=== PATIENT | female | born 1940 | race Caucasian/White ===

== ENCOUNTER → 2016-10-24 | Outpatient (CLI) | payer BC ==
--- NOTE | 2016-10-24 15:32 | MAMMOGRAPHY REPORT ---
BILATERAL DIGITAL SCREENING MAMMOGRAM WITH CAD: 10/24/2016 CLINICAL HISTORY: Routine screening. Patient has no complaints. TECHNIQUE: Current study was also evaluated with a Computer Aided Detection (CAD) system. Bilateral CC and MLO views were obtained. COMPARISON: Comparison is made to exams dated: 10/02/2014 mammogram, 09/30/2013 mammogram, 09/24/2012 ya mogram, 09/22/2011 mammogram, 09/17/2010 mammogram - [facility], and 11/12/2006. BREAST COMPOSITION: There are scattered areas of fibroglandular density in both breasts. FINDINGS: No suspicious masses, calcifications, or areas of architectural distortion are noted in ei ther breast. There has been no significant interval change compared to prior exams. IMPRESSION: ACR BI-RADS CATEGORY 1: NEGATIVE There is no mammographic evidence of malignancy. A 1 year screening mammogram is recommended. The pa tient will receive written notification of the results. Approximately 10% of breast cancers are not detected with mammography. A negative mammographic report should not delay biopsy if a clinically suggestive mass is present. Allie Batista M.D. ah/:10/24/2016 10:23:40 General Repairer: Shona BACA(R)(M), [facility] letter sent: Normal 1/2 BI-RADS Code: ACR BI-RADS Category 1: Negative
== END | disposition home or self-care (01) ==
LOC: C.MAMM 09:37
PROVIDERS: ATTEND Family Medicine
DX: Z12.31 Encounter for screening mammogram for malignant neoplasm of breast (principal)

== ENCOUNTER 2019-07-28 07:23 | Inpatient (IN) ==
--- NOTE | 2019-07-15 16:56 | History & Physical Report ---
Date of Service July 15, 2019 Assessment & Plan (1) Osteoarthritis of left hip: Plan: Patient is scheduled to undergo this procedure with Dr. Michael Schneider at the [facility] as an inpatient on July 28, 2019. Risks and complications of the procedure such as: Infection, bleeding, pain, scarring, nerve blood vessel damage, weakness, wound problems, stiffness, incomplete relief of symptoms, hardware failure, hardware loosening, wear, fracture, tendon or ligament injury, dislocation, leg length inequality, blood clots, embolism, heart attack, stroke and were explained the patient had a visit today by Dr. Schneider. Informed consent to perform the procedure was obtained. Patient also understood the risks of surgery during the COVID-19 pandemic. Currently she is asymptomatic. We will test the patient for COVID-19 prior to her surgical procedure. We have already obtained preoperative medical clearance from the patient's primary care provider Dr. Padilla. Pain is EKG at our clinic this afternoon. Patient will proceed to the laboratory upstairs to obtain a CBC with differential, complete metabolic panel, PT/INR, urinalysis, urine culture, hemoglobin A1c and a nasal culture for MRSA. Patient was provided with an order for a walker during today's visit. I also recommended that she purchase a hip kit prior to the procedure. Patient will be scheduled for her 2-week postoperative follow-up with myself on August 12, 2019 at 2:00 in the afternoon. I advised the patient that we will provide her with pain relieving agents upon discharge from the hospital. She states that she will most likely plan on discharge to home with home health services discussing discharge planning. I advised the patient that she will need to take antibiotics prior to dental procedures after doing replacement surgery. I also provided her with paperwork in regards to obtaining a handicap placard for her vehicle. We discussed total hip precautions and went over the hip arthroscopy packet. All questions were answered completely and effectively. Standing of all information provided during today's visit, thanks for the care she is received, and states she has questions or concerns that should arise prior to her surgery date, she will contact clinic. History of Present Illness Chief Complaint: Left hip pain PRE-OP Diagnosis: Left hip osteoarthritis Planned Procedure: Left total hip arthroplasty History of Present Illness (including history relevant to procedure): This 78-year-old female presents the clinic today for preoperative history and physical examination. She complains of persistent left anterior hip pain that is been ongoing since mid November 2018. Patient states she went to transition from a seated to a standing position while caring for her grandchildren felt a popping sensation in the hip. Since that time she has had progressive worsening of the pain. Over the winter months she was in [place] saw an orthopedic surgeon who thought that the pain may be originating from her back. She received a few steroid injections that did not alleviate her pain. Patient was referred to physical therapy and her therapist felt that it may be stemming from her hip. After his recommendation she received x-rays and MRI that confirmed the hip arthritis. Patient feels it is affecting her activities of daily living and states she would like to resume golfing, hopefully this winter when she returns to [place]. Past Medical History: Problems: Osteoarthritis of left hip Preop examination Left hip pain Hypertension Hyperlipidemia GERD Anxiety Procedure History Procedure Procedure Date Comments Hernia 2017 - hernia repair EYE SURGERY PROCEDURE 2007 - cataracts REMOVAL OF GALLBLADDER 2006 TOTAL HYSTERECTOMY 1986 DELIVERY 1976 - 1970 and 1976 ASPIRATE/INJ GANGLION CYST 1965 Allergies and Sensitivities: Allergy Not found in Search(sinus drainage) Dust(sinus drain) No Known Medication Allergies Social History: Patient denies tobacco or illicit drug use. She consumes approximately 10 alcoholic beverages per week. Family History: Completely unremarkable Current Home Meds: (Last Updated 07/14 14:23) aspirin 81 mg PO Daily(Vitamin D3)(Vitamin B-12) PO Dailyophthalmic (Restasis) 1 drop both eyes Daily(Dulcolax Stool Softener)(Unisom) pm pain(gemfibrozil 600 mg oral tablet)(hydroCHLOROthiazide 25 mg oral tablet)(Advil)with minerals (Centrum Silver oral tablet) 1 tab PO Daily(pantoprazole 20 mg oral delayed release tablet) potassium gluconate Review of Systems All systems reviewed & are unremarkable except as noted in HPI & below Physical Exam Physical Exam: Physical Exam: (relevant to the procedure, including heart and lung evaluation) General: Alert and oriented x3 with proper grooming and hygiene Eyes: are equal react light and accommodating. Extraocular movements are intact Throat: Posterior oropharynx is clear with absence of edema, erythema or exudate Cardiac: Regular rate and rhythm with no murmurs or gallops appreciated Lungs: Auscultation of lung earl reveals clear breath sounds throughout with no wheezing, rales or rhonchi Abdomen: Mildly obese, nondistended, nontender with normal active bowel sounds Extremities: Left hip exam shows flexion up to 110 degrees. External rotation is limited to 30 degrees and internal rotation is 5 degrees. She has positive impingement-scour test. Positive Stinchfield test. She has palpable dorsalis pedis and posterior tibial pulses. Sensory intact to light touch, L3-S1 dermatomes. Neuro: Cranial nerves II through XII are intact with no motor or sensory deficit Skin: Normal in appearance with no open skin areas or discharge Results & Data Diagnostic Findings Studies of Lab Results (relevant to the procedure): X-rays that were done down in [place] as well as an MRI are reviewed. These show lxjw-[id number] arthritis with edema seen within the femoral head greater than the acetabulum consistent with advanced osteoarthritis.
--- NOTE | 2019-07-22 13:12 | Anesthesiology Consultation ---
Date of Service July 22, 2019 Assessment & Plan (1) Encounter for pre-operative examination: Chart Review Chart Review: Pending: Refer to Additional Notes / Consult section (final PCP clearance pending review of preop testing (may need cardiac workup due to abnormal EKG) and 07/24 Covid testing results) and Patient NOT seen in Pre Admission Testing *Per nursing assessment 07/21/2019, patient resides in [facility] but traveled to [place] (near [place]) from November 2018 till May 2019. Patient returned to [facility] on 06/22/2019. Pt denies any known contact with PUI/Covid positive patients. No current Covid related symptoms. Patient scheduled for COVID testing 07/25/2019 per surgeon orders. Seen by PCP 07/13/2019 = unremarkable preop evaluation today with unremarkable physical exam and normal vitals. Would recommend a screening EKG as well as a BMP to check renal function. At this time, pending patient's labs and screening EKG, she is a low risk for adverse cardiorespiratory outcomes with upcoming surgical procedure. (PCP was sent preop labs and EKG for review since EKG has abnormalities- will await PCP response). History Surgery Operation Date: 07/28/19 09:35 Proposed Procedures p Left Total Hip Arthroplasty - Michael Vo MD Height/Weight Height: 5 ft 4 in Weight: 67.132 kg Allergies Allergy/AdvReac Type Severity Reaction Status Date / Time No Known Drug Allergies Allergy Verified 07/21/19 09:48 nickel AdvReac Intermediate SKIN Verified 07/21/19 09:48 IRRITATION Medications Home Medications Medication Instructions Recorded Confirmed Last Taken acetaminophen [Tylenol Arthritis 1,300 mg PO QAM PRN 07/21/19 07/21/19 Unknown Pain] aspirin [Aspirin Low Dose] 81 mg PO DAILY 07/21/19 07/21/19 Unknown cholecalciferol (vitamin D3) 25 mcg PO DAILY 07/21/19 07/21/19 Unknown [Vitamin D3] cyanocobalamin (vitamin B-12) 1,000 mcg PO DAILY 07/21/19 07/21/19 Unknown [Vitamin B-12] cyclosporine [Restasis] 1 drp OPHTHALMIC (EYE) Q12H 07/21/19 07/21/19 Unknown diphenhydramine-acetaminophen 1 tab PO HS PRN 07/21/19 07/21/19 Unknown [Tylenol PM Extra Strength] docusate sodium [Stool Softener] 200 mg PO QAM 07/21/19 07/21/19 Unknown gemfibrozil 600 mg PO QAM 07/21/19 07/21/19 Unknown losartan-hydrochlorothiazide 1 tab PO QAM 07/21/19 07/21/19 Unknown ljphdxoy-mxk-zkwr-FA-lutein 1 tab PO DAILY 07/21/19 07/21/19 Unknown [Centrum Silver Women] pantoprazole 20 mg PO QAM 07/21/19 07/21/19 Unknown potassium gluconate 595 mg PO DAILY 07/21/19 07/21/19 Unknown travoprost [Travatan Z] 1 drp OPHTHALMIC (EYE) PM 07/21/19 07/21/19 Unknown Past Medical History Medical History Anxiety Chronic back pain GERD (gastroesophageal reflux disease) Glaucoma TREATED FOR HIGH PRESSURE Hip pain GROIN INTO THE KNEE PAIN BELIVED TO BE RELATED TO THE HIP AREA History of tachycardia R/T ANXIETY Hyperlipidemia Hypertension Osteoarthritis Past Family History Family History Mother FHx: glaucoma Other No family history of adverse response to anesthesia Past Surgical History Surgical History History of appendectomy History of cataract surgery BILATERAL History of section History of cholecystectomy History of colonoscopy Hx of umbilical hernia repair S/P epidural steroid injection S/P OZIEL-BSO Social History Smoking Status: Never smoker Do You Dip or Chew Tobacco: No Hx Alcohol Use: Yes Alcohol type: wine alcohol intake frequency: 0-2 drinks per day Hx Substance Use: No substance use type: does not use Testing Laboratory Results Laboratory Tests 07/15/19 07/15/19 07/15/19 15:37 15:37 15:37 WBC 6.00 Hgb 13.0 Hct 37.9 Plt Count 214 PT 10.9 INR 1.0 Sodium 142 Potassium 3.2 L Chloride 103 Carbon Dioxide 27 BUN 23 H Creatinine 1.28 H Glucose 123 H Hemoglobin A1c 07/15/19 15:37 WBC Hgb Hct Plt Count PT INR Sodium Potassium Chloride Carbon Dioxide BUN Creatinine Glucose Hemoglobin A1c 6.1 H Urine culture 07/15/2019 = gamma strep not enterococcus. 50,000 CFG/ml. No sensitivies to follow Electrocardiogram Date: 07/15/19 Findings: + NSR @ (79) T wave abnormality, consider lateral ischemia. Prolonged QT Echocardiogram Date: 10/26/13 EF: 50 to 55% LV Function: normal RWMA: + none Valvular Disease: + no significant valvular disease Grade 1 diastolic dysfunction.
[~2019-07-28 07:23] MED LIST: ACETAMINOPHEN 500 MG TAB PO SCH; BUPIVACAINE 0.5 % 5 MG/1 ML PF 10ML VIAL ONE; CEFAZOLIN 2000MG 2,000 MG/15 ML SYR IV SCH; CeleBREX 200 MG CAP PO SCH; FAMOTIDINE 20 MG TAB PO SCH; LR 500ML BOLUS, THEN 15ML/HR IV SCH; LR 60ML/HR IV SCH; METOCLOPRAMIDE HCL 10 MG TABLET PO SCH; ROPIVACAINE 0.5% HCL/PF 150 MG, BUPIVACAINE 0.5% MPF 30 ML, EPINEPHrine 0.15 MG, Ketoro... INFIL SCH; SCOPOLAMINE 1.5 MG TDSY TD SCH; TRAMADOL HCL 50 MG TABLET PO SCH; TRANEXAMIC ACID 1,000 MG **IV Intra-op IV SCH; TRANEXAMIC ACID 1,000 MG **IV Pre-op IV SCH; dexAMETHasone 4 MG TAB PO SCH
[2019-07-28] MEDS ORDERED: LIDOCAINE HCL 2% 2 ML VIAL/AMP(20MG/ML) INFIL ONE (08:28)
[2019-07-28] MEDS ORDERED: PROPOFOL IV EMULSION 10 MG/ML 20 ML VIAL IV ONE (08:28)
[2019-07-28] MEDS ORDERED: MIDAZOLAM HCL 1 MG/ML 2ML VIAL ONE (08:29)
[2019-07-28] MEDS ORDERED: fentaNYL citrate 100 MCG/2 ML VIAL ONE (08:29)
--- NOTE | 2019-07-28 09:16 | History & Physical Bridge Note ---
Date of Service July 28, 2019 History & Physical Bridge Note I have examined the patient, reviewed the History & Physical and in the interval since the performance of the History & Physical I have noted the following changes of clinical significance: no changes noted
[2019-07-28] MEDS ORDERED: ORTHO JOINT ANESTHETIC ONE (09:33)
--- NOTE | 2019-07-28 11:31 | Operative Report ---
Post Operative Report Pre & Post Diagnosis Operation Date: 07/28/19 09:35 Pre-Op Diagnosis: Left Hip Osteoarthritis Post-Op Diagnosis: Left Hip Osteoarthritis I identified the patient and participated in the time-out.: Yes Procedure Operation Date: 07/28/19 09:35 Actual Procedures p Left Total Hip Arthroplasty, Uncemented(Left) - Michael Vo MD Surgeon Michael oV MD Geological Drafter ANAID Ward PA-C Estimated Blood Loss 100 Findings Consistent with Post-Op Diagnosis Specimens Femoral head Anesthesia Type Spinal MAC Complications none Disposition Accompanied Patient To Recovery: No Disposition: Recovery Room Indications 79-year-old female with left hip pain refractory to conservative management. X- rays demonstrate ndik-sz-syky arthritis. I had a long discussion with her about the risks and benefits of surgery alternatives to surgery and expected outcomes. After reviewing all these she elected to proceed with surgery. All questions were answered. Informed consent was signed. Description of Procedure Patient was identified in the preoperative holding area the surgical site was marked. A spinal anesthetic was performed, then the patient was brought back to the main operating room, placed in the operating table and moved in the lateral decubitus position. Axillary roll was placed. All bony prominences were padded. Perioperative antibiotics and tranexamic acid were administered. The operative extremity was prepped and draped in the normal sterile fashion. Prior to incision a multidisciplinary timeout was called. All in the room in agreement. We began by making an incision for a posterior approach to the hip. We dissected down through subcutaneous tissues to the level of the fascia. The fascia was incised in line with the incision. Charnley bow was placed. The trochanteric bursa was excised. The piriformis and short external rotators were dissected off the posterior aspect of the hip. A box cut was made in the capsule. The femoral head was dislocated. The femoral neck cut was made at our preoperative template. The acetabulum was then exposed. Contents of the cotyloid fossa were removed with electrocautery. The labrum was sharply excised. We then began reaming at a size 8 mm less than our preoperative template. We reamed up by 1 [address] the way up to a size 52 mm cup. This gave us good bleeding cancellus bone circumferentially. The acetabulum was then irrigated out. The real pinnacle Gription cup was then impacted down into position with 45 degrees of lateral opening and 25 degrees of anteversion. A single cancellous bone screw was placed up into the ilium. Excellent fixation was obtained. An Ultrex polyethylene liner for a 32 mm femoral head was then impacted into the shell. The locking mechanism was checked to ensure that it had engaged which it had. Next we turned our attention to the femur. The lateral neck was removed with a box osteotome. Intramedullary guide was used followed by the lateralizing reamer. We then reamed up to a size 5 [place] stem. We broached him all the way up to a size 5. We began trialing with a standard offset neck and a +5 head. Hip was reduced. Leg lengths were checked and were symmetric. The hip was stable was stable in extension and external rotation, and in the sleeper position. At 90 degrees of hip flexion the hip could be internally rotated 70 degrees before levering out of the cup. I was very happy with the stability exam. Therefore the hip was dislocated and the femoral trial was removed. The femoral canal was irrigated and dried. The real size 5 standard offset [place] femoral stem was opened up. This was impacted down into position. It sat at the same level as the femoral trial. Therefore the 32 mm ceramic femoral head with a +5 mm offset was opened up and gently impacted down onto the trunnion. The hip was atraumatically reduced. The wound was irrigated out with sterile Betadine solution. The periarticular injection cocktail was then placed. The short external rotators piriformis and posterior capsule repaired through drill holes in the greater trochanter using #2 Vicryl. The fascia was run with a looped #1 PDS. The subcutaneous layer was closed with #1 PDS. The dermal layer was closed with 2-0 Vicryl. Zip line was used for the skin followed by a Silverlon dressing. A compressive dressing was then placed. The patient was then rolled supine. Leg lengths were rechecked and were symmetric. An abduction pillow was placed. Sedation was lifted and the patient was transferred to recovery room in stable condition. Summary of implants: Depuy Keymar Gription Acetabular Shell Sector Cup, 52 mm outer diameter Keymar Cancellous bone screw, 6.5 x 35 mm Keymar Altrx Polyethylene Acetabular Liner, Neutral, with a 32 mm inner diameter DePuy [place] Femoral stem with Porocoat, 12/14 taper, size 5 standard 32 mm ceramic femoral head with +5 offset Postoperative course: Patient will be admitted to the hospital from the recovery room. Patient will be weightbearing as tolerated with posterior hip precautions. Aspirin for DVT prophylaxis I attest to the content of the Intraoperative Record and any orders documented therein. Any exceptions are noted below.
[2019-07-28] MEDS ORDERED: NALOXONE HCL 0.4 MG/1 ML VIAL/CARP IV PRN (11:32)
[2019-07-28] MEDS ORDERED: bisacodyL 10 MG SUPP PR PRN (11:32)
[2019-07-28] MEDS ORDERED: ALUMINUM/MAGNESIUM SUSP 30 ML UDC PO PRN (11:32)
[2019-07-28] MEDS ORDERED: DiphenhydrAMINE HCL 50 MG/ML VIAL IV PRN (11:32)
[2019-07-28] MEDS ORDERED: HYDROmorphone INJ 0.5 MG/0.5 ML SYR IV PRN (11:32)
[2019-07-28] MEDS ORDERED: ONDANSETRON INJ 2 MG/ML 2 ML VIAL IV PRN (11:32)
[2019-07-28] MEDS ORDERED: METOCLOPRAMIDE HCL INJ 5 MG/ML 2 ML VIAL IV PRN (11:32)
[2019-07-28] MEDS ORDERED: MAGNESIUM HYDROXIDE SUSP 30 ML UDC PO PRN (11:32)
--- NOTE | 2019-07-28 11:32 | Operative Report ---
Post Operative Report Pre & Post Diagnosis Operation Date: 07/28/19 09:35 Pre-Op Diagnosis: Left Hip Osteoarthritis Post-Op Diagnosis: Left Hip Osteoarthritis I identified the patient and participated in the time-out.: Yes Procedure Operation Date: 07/28/19 09:35 Actual Procedures p Left Total Hip Arthroplasty, Uncemented(Left) - Michael Vo MD Surgeon Michael Vo MD Termite Inspector Garrick Ward PA-C Estimated Blood Loss 100 Findings Consistent with Post-Op Diagnosis Specimens femoral head Complications none Disposition Accompanied Patient To Recovery: Yes Disposition: Recovery Room Description of Procedure I was present during the entire procedure assisting with retraction, wound closure and dressing application. Please see Dr. Vo procedure note for specifics of the case. I attest to the content of the Intraoperative Record and any orders documented therein. Any exceptions are noted below.
[2019-07-28] MEDS ORDERED: NON-FORMULARY MEDICATION (Diphenhydramine-Acetaminophen [Tylenol Pm Extra Strength] 1 TAB) PO PRN (11:36)
--- NOTE | 2019-07-28 11:58 | XRay Report ---
AP PELVIS, CROSSTABLE LATERAL LEFT HIP History: Left total hip arthroplasty. Degenerative arthritis. Postop. FINDINGS: The patient is status post a left total hip arthroplasty. The hardware is intact. No fractu re or dislocation. IMPRESSION: Left total hip arthroplasty. No evidence for hardware complication. ACT 112: Negative or not required by law. Electronically signed by: Milan Sanchez M.D. 07/28/2019 11:57 AM
--- NOTE | 2019-07-28 13:28 | Anesthesiology Progress Note ---
Date of Service July 28, 2019 Anesthesia Post Procedure Vital Signs Vital Signs: Temp Pulse Pulse Resp BP Pulse Ox 07/28/19 13:19 36.5 C 63 16 120/74 97 07/28/19 12:55 65 16 118/76 95 07/28/19 12:45 66 12 120/74 96 07/28/19 12:35 67 21 119/80 98 07/28/19 12:25 60 12 121/70 97 07/28/19 12:15 63 14 117/85 95 07/28/19 12:05 67 15 97/65 L 99 07/28/19 11:55 36.4 C L 62 15 107/69 94 07/28/19 11:45 59 L 13 101/60 93 07/28/19 11:35 63 17 112/65 93 07/28/19 11:27 36 C L 64 20 92/52 L 100 07/28/19 08:18 36.8 C 66 20 138/79 96 Transfer of Care Handoff Completed per policy Notes Mental Status: alert / awake / arousable and participated in evaluation Patient Amnestic to Procedure: Yes Nausea / Vomiting: adequately controlled Pain: adequately controlled Airway Patency, RR, SpO2: stable & adequate BP & HR: stable & adequate Hydration State: stable & adequate Anesthetic Complications: no major complications apparent
[2019-07-28] MEDS ORDERED: ACETAMINOPHEN 500 MG TAB PO PRN (13:32)
[2019-07-28] MEDS: SODIUM CHLORIDE 0.9% 1000ML 1,000 ML IV SCH ×2 (14:56→23:55)
[2019-07-28] MEDS: ACETAMINOPHEN 500 MG TAB PO SCH ×2 (14:56→21:09)
[2019-07-28] MEDS: KETOROLAC TROMETHAMINE 15 MG/ML VIAL IV SCH ×2 (14:57→20:03)
[2019-07-28] MEDS ORDERED: TRANEXAMIC ACID / 0.7% NACL 1,000 MG/100 ML BAG IV SCH (17:34)
[2019-07-28] MEDS: CHECK SCOPOLAMINE PATCH PLACEMENT SCH ×2 (17:52→23:56)
[2019-07-28] MEDS: RESTASIS: ORDER AWAITING ACTION SCH ×2 (17:53→23:57)
[2019-07-28] MEDS: CEFAZOLIN 2000MG 2,000 MG/15 ML SYR IV SCH (18:31)
[2019-07-28] MEDS: ASPIRIN 81 MG ECTAB PO SCH (20:03)
[2019-07-28] MEDS: TRAMADOL HCL 50 MG TABLET PO PRN (20:04)
[2019-07-28] MEDS: TRAVOPROST Z 0.004% OPH SOLN 2.5 ML BTL OP SCH ×2 (20:05→20:08)
[2019-07-28] MEDS: PATIENT'S ALLERGY INFO NEEDS ENTERED SCH ×3 (20:46→21:04)
[2019-07-28] MEDS ORDERED: DOCUSATE SODIUM 100 MG CAP PO SCH (21:00)
[2019-07-28] MEDS ORDERED: ASPIRIN 81 MG ECTAB PO SCH (21:00)
[2019-07-28] MEDS ORDERED: SENNA 8.6 MG TAB PO SCH (21:00)
[2019-07-29] MEDS: KETOROLAC TROMETHAMINE 15 MG/ML VIAL IV SCH ×2 (02:10→07:35)
[2019-07-29] MEDS: CEFAZOLIN 2000MG 2,000 MG/15 ML SYR IV SCH (02:10)
[2019-07-29] MEDS: ACETAMINOPHEN 500 MG TAB PO SCH (04:47)
[2019-07-29 05:44] LABS: Eosinophils # (auto) 0.01 K/uL (0-0.5); Eosinophils % (auto) 0.1 %; Hematocrit (blood only) 28.7 % (37-47); Hemoglobin 9.4 g/dL (12.0-16.0); Immature Granulocytes # (auto) 0.01 K/uL (0.00-0.02); Immature Granulocytes % (auto) 0.1 %; Lymphocytes # (auto) 1.09 K/uL (1.2-3.4); Lymphocytes % (auto) 11.2 %; Mean Corpuscular Hemoglobin 28.8 pg (25-34); Mean Corpuscular Hgb Conc 32.8 g/dL (32-36); Mean Platelet Volume 10.7 fL (7.4-10.4); Monocytes % (auto) 7.2 %; Neutrophils # (auto) 7.93 K/uL (1.4-6.5); Neutrophils % (auto) 81.4 %; Platelet Count 204 K/uL (130-400); RDW Coefficient of Variation 12.4 % (11.5-14.5); RDW Standard Deviation 40.4 fL (36.4-46.3); Red Blood Count 3.26 M/uL (4.2-5.4); White Blood Count 9.74 K/uL (4.8-10.8)
[2019-07-29 06:03] LABS: BUN Creatinine Ratio 19.4 (10-20); Calcium 8.6 mg/dl (8.5-10.1); Creatinine Clr Calc Pharmacy 31.7 ml/min; Est GFR (Non-African American) 36.2; Potassium 3.9 mmol/L (3.5-5.1)
[2019-07-29] MEDS: RESTASIS: ORDER AWAITING ACTION SCH (07:36)
[2019-07-29] MEDS: CHECK SCOPOLAMINE PATCH PLACEMENT SCH (07:36)
[2019-07-29] MEDS ORDERED: dexAMETHasone 4 MG TAB PO SCH (08:00)
[2019-07-29] MEDS: ASPIRIN 81 MG ECTAB PO SCH (08:45)
[2019-07-29] MEDS ORDERED: PANTOprazole 40 MG TAB PO SCH (09:00)
[2019-07-29] MEDS ORDERED: DOCUSATE SODIUM 100 MG CAP PO SCH (09:00)
[2019-07-29] MEDS ORDERED: CHOLECALCIFEROL 1,000 UNITS 25 MCG TAB PO SCH (09:00)
[2019-07-29] MEDS ORDERED: NON-FORMULARY MEDICATION (Potassium Gluconate 595 MG) PO SCH (09:00)
[2019-07-29] MEDS ORDERED: gemfibroziL 600 MG TAB PO SCH (09:00)
[2019-07-29] MEDS ORDERED: NON-FORMULARY MEDICATION (Multivit-Min-Iron-Fa-Lutein [Centrum Silver Women] 1 TAB) PO SCH (09:00)
[2019-07-29] MEDS ORDERED: MULTIVITAMIN TAB PO SCH (09:00)
[2019-07-29] MEDS ORDERED: LOSARTAN/HCTZ 50/12.5MG TAB PO SCH (09:00)
[2019-07-29] MEDS ORDERED: CYANOCOBALAMIN 500 MCG TABLET (VITAMIN B-12) PO SCH (09:00)
--- NOTE | 2019-07-29 10:19 | Orthopedic Progress Note ---
Date of Service July 29, 2019 Assessment & Plan (1) S/P total hip arthroplasty: Reviewed Total Hip precautions. PT/OT WBAT with walker assistance DVT prophy with TEDs and Aspirin Pain control with PO meds Ice with EZ wrap Discharge home today with home health services Keep dressing in place Follow up at [facility] as scheduled With questions call: Admission and Anticipated Discharge Date Admission Date: July 28, 2019 Subjective This 79 yo F is day 1 s/p left total hip arthroplasty. She was meeting with OT when I saw her this AM. Her outer dressing was removed and Silverlon was clean and intact. She had no complaints and stated that the oral Tramadol had adequately controlled her pain. She is ready to be discharged home. Patient denies CP, SOB, nausea, vomiting, fever, chills, sweats or lethargy. Review of Systems Review of Systems: All systems reviewed & are unremarkable except as noted in Subjective Physical Exam Physical Exam: Left hip: dressing clean, dry and intact. Knee ROM 0-90 without difficulty. Log roll and stinchfield tests negative. Able to actively perform SLRT and dorsi/plantar flex foot. No pain with light passive internal/external hip rotation. Calf soft and supple. NV intact. Periph pulses easily palpable. Cap refill < 2 seconds. Results & Data ([facility]) Vital Signs (Past 12 Hours) Vital Signs Temp Pulse Resp BP Pulse Ox 07/29/19 07:44 36.4 C L 66 16 123/79 93 07/29/19 03:30 36.9 C 62 14 105/64 96 07/28/19 23:22 36.7 C 66 14 120/71 95 Laboratory Results 07/29/19 07/29/19 Range/Units 05:34 05:34 WBC 9.74 (4.8-10.8) K/uL RBC 3.26 L (4.2-5.4) M/uL Hgb 9.4 L (12.0-16.0) g/dL Hct 28.7 L (37-47) % MCV 88.0 (80-100) fL MCH 28.8 (25-34) pg MCHC 32.8 (32-36) g/dL RDW Std Deviation 40.4 (36.4-46.3) fL RDW Coeff of Josh 12.4 (11.5-14.5) % Plt Count 204 (130-400) K/uL MPV 10.7 H (7.4-10.4) fL Immature Gran % (Auto) 0.1 % Neut % (Auto) 81.4 % Lymph % (Auto) 11.2 % Becker % (Auto) 7.2 % Eos % (Auto) 0.1 % Baso % (Auto) 0.0 % Immature Gran # (Auto) 0.01 (0.00-0.02) K/uL Neut # (Auto) 7.93 H (1.4-6.5) K/uL Lymph # (Auto) 1.09 L (1.2-3.4) K/uL Becker # (Auto) 0.70 H (0.11-0.59) K/uL Eos # (Auto) 0.01 (0-0.5) K/uL Baso # (Auto) 0.00 (0-0.2) K/uL Sodium 138 (136-145) mmol/L Potassium 3.9 (3.5-5.1) mmol/L Chloride 108 H (98-107) mmol/L Carbon Dioxide 25 (21-32) mmol/L Anion Gap 5.0 (3-11) BUN 27 H (7-18) mg/dl Creatinine 1.39 H (0.6-1.2) mg/dl Est Cr Clr Drug Dosing 31.7 ml/min Est GFR ( Amer) 42.0 Est GFR (Non-Af Amer) 36.2 BUN/Creatinine Ratio 19.4 (10-20) Glucose 129 H (70-99) mg/dl Calcium 8.6 (8.5-10.1) mg/dl
--- NOTE | 2019-07-29 10:20 | Discharge Summary ---
Date of Service July 29, 2019 Admission HPI Per Admitting Provider PRE-OP Diagnosis: Left hip osteoarthritis Planned Procedure: Left total hip arthroplasty History of Present Illness (including history relevant to procedure): This 78-year-old female presents the clinic today for preoperative history and physical examination. She complains of persistent left anterior hip pain that is been ongoing since mid November 2018. Patient states she went to transition from a seated to a standing position while caring for her grandchildren felt a popping sensation in the hip. Since that time she has had progressive worsening of the pain. Over the winter months she was in [place] saw an orthopedic surgeon who thought that the pain may be originating from her back. She received a few steroid injections that did not alleviate her pain. Patient was referred to physical therapy and her therapist felt that it may be stemming from her hip. After his recommendation she received x-rays and MRI that confirmed the hip arthritis. Patient feels it is affecting her activities of daily living and states she would like to resume golfing, hopefully this winter when she returns to [place]. Past Medical History: Problems: Osteoarthritis of left hip Preop examination Left hip pain Hypertension Hyperlipidemia GERD Anxiety Procedure History Procedure Procedure Date Comments Hernia 2017 - hernia repair EYE SURGERY PROCEDURE 2008 - cataracts REMOVAL OF GALLBLADDER 2007 TOTAL HYSTERECTOMY 1986 DELIVERY 1976 - 1970 and 1976 ASPIRATE/INJ GANGLION CYST 1965 Allergies and Sensitivities: Allergy Not found in Search(sinus drainage) Dust(sinus drain) No Known Medication Allergies Social History: Patient denies tobacco or illicit drug use. She consumes approximately 10 alcoholic beverages per week. Family History: Completely unremarkable Current Home Meds: (Last Updated 07/14 14:23) aspirin 81 mg PO Daily(Vitamin D3)(Vitamin B-12) PO Dailyophthalmic (Restasis) 1 drop both eyes Daily(Dulcolax Stool Softener)(Unisom) pm pain(gemfibrozil 600 mg oral tablet)(hydroCHLOROthiazide 25 mg oral tablet)(Advil)with minerals (Centrum Silver oral tablet) 1 tab PO Daily(pantoprazole 20 mg oral delayed release tablet) potassium gluconate Admission Exam Per Admitting Provider General: Alert and oriented x3 with proper grooming and hygiene Eyes: are equal react light and accommodating. Extraocular movements are intact Throat: Posterior oropharynx is clear with absence of edema, erythema or exudate Cardiac: Regular rate and rhythm with no murmurs or gallops appreciated Lungs: Auscultation of lung earl reveals clear breath sounds throughout with no wheezing, rales or rhonchi Abdomen: Mildly obese, nondistended, nontender with normal active bowel sounds Extremities: Left hip exam shows flexion up to 110 degrees. External rotation is limited to 30 degrees and internal rotation is 5 degrees. She has positive impingement-scour test. Positive Stinchfield test. She has palpable dorsalis pedis and posterior tibial pulses. Sensory intact to light touch, L3-S1 dermatomes. Neuro: Cranial nerves II through XII are intact with no motor or sensory deficit Skin: Normal in appearance with no open skin areas or discharge Principal Diagnosis Left Hip Osteoarthritis Discharge Exam Left hip: dressing clean, dry and intact. Knee ROM 0-90 without difficulty. Log roll and stinchfield tests negative. Able to actively perform SLRT and do rsi/plantar flex foot. No pain with light passive internal/external hip rotation. Calf soft and supple. NV intact. Periph pulses easily palpable. Cap refill < 2 seconds. Discharge Data Allergies Allergy/AdvReac Type Severity Reaction Status Date / Time No Known Drug Allergies Allergy Verified 07/28/19 08:10 nickel AdvReac Intermediate SKIN Verified 07/28/19 08:10 IRRITATION Consultations 07/29/19 08:00 Consult Case Management - Discharge Planning Routine Procedures Performed Operation Date: 07/28/19 09:35 Actual Procedures p Left Total Hip Arthroplasty, Uncemented(Left) - Michael Vo MD Hospital Course (1) S/P total hip arthroplasty: Patient did very well overnight without complication. She has no issues with PT/OT this AM. She will be discharged home with home health services for in-home PT. Reviewed Total Hip precautions. PT/OT WBAT with walker assistance DVT prophy with TEDs and Aspirin Pain control with PO meds Ice with EZ wrap Discharge home today with home health services Keep dressing in place Follow up at [facility] as scheduled With questions call: Total Time Total Time Spent Total Time Spent (In Minutes): 20 mins Total Time Includes: Examination of the Patient, Discharge Planning and Medication Reconciliation Discharge Plan Discharge Items Patient Disposition: Home - Home Health Services Reason For Visit: Left Hip Osteoarthritis Discharge Diagnosis: Left Hip Osteoarthritis Activity: As commented below Lifting: None Bathing: Keep incision dry Bathing Comment: May shower tomorrow Sexual Activity: Wait until after follow-up appointment Exercise/Sports: Wait until after follow-up appointment Driving/Machine Use: No driving until cleared by inventory management specialist Weightbearing: Left weightbearing Weightbearing Comment: as tolerated with walker assistance Non-emergency contact: Primary Care Provider Call non-emergency contact if: you have any medication questions, your pain is not controlled, your temperature is above 101.5, your wound has increased drainage and your wound pain has increased Follow-up/Referrals: PCP,NO [Primary Care Provider] - Diet: Regular Addtl Attending Provider Instructions: Post-operative Instructions Dear Patient and Family/Friends, Before you are discharged from the hospital, it is important to know what to e xpect when you get home after surgery. To that end, we have created this sheet of discharge instructions which covers many commonly asked questions. Make sure you go through this sheet in its entirety with your nurse before you are discharged. Please note that we will go over the specifics of your surgery and recovery when you return for your first post-operative visit. Sincerely, Dr. Vo Medication 1. Tramadol 50 mg: take 1-2 tabs by mouth every 4-6 hours as needed for pain. This will be sent to your pharmacy. 2. Diclofenac Sodium 75 mg: take 1 tab twice daily for 30 days post operatively. This will be sent to your pharmacy with 1 refill. 3. Aspirin 81 mg: take 1 tab twice daily for 30 days post operatively to prevent blood clots. Please purchase this medication. 4. Extra Strength Tylenol 500mg: take 2 tabs every 6-8 hour as needed for pain for 30 days post operatively. Please purchase this medication. Pain Expect to be in a fair amount of pain after surgery. Remember, our goal is not to eliminate your pain, but to make it tolerable. It is a good idea to stay ahead of your pain by taking the medications you were prescribed once you get home. Typically, the pain starts improving 3-7 days after surgery. You should start weaning off the narcotic pain medication (oxycodone, hydrocodone, hydromorphone, morphine) as soon as your pain improves. Please call our office if your pain is not adequately controlled. Ice Ice your operative site at least 5 times a day for 15-30 minutes at a time. Make sure you have a thin cloth between the ice or cooling unit and your skin to prevent frank bite. This is especially important if you received a nerve block. Continue icing your operative site for the first 5-7 days after surgery, then as needed. Diet/Nausea/Vomiting Start by drinking clear liquids and eating crackers. If you can tolerate this, then you may resume your normal diet. If you feel nauseated or vomit, take Zofran/ondansetron (if prescribed). Please call our office if you have intractable nausea or vomiting, or, if after hours, you may go to the Emergency Room for help. Constipation Constipation is a common side effect of narcotic pain medication. If you have not had a bowel movement within 2 days after surgery, we recommend purchasing an over the counter laxative such as Milk of Magnesia, Dulcolax, or Miralax from a local pharmacy, and taking it as instructed. Call our clinic if any questions. Nerve block The anesthesia team sometimes places a nerve block to help with post-operative pain control. This results in significant numbness and inability to move the extremity. The nerve block usually wears off in 8-12 hours, but sometimes can last up to 24 hours. Please call our office if you are still unable to move your extremity after 24 hours, unless you received a pain pump to take home. Nerve blocks typically wear off quickly, so start taking pain medication as soon as you start feeling soreness near your surgical site. Weight bearing and Range of Motion. Do not bear any weight through your operative extremity immediately after surgery. If you had upper extremity surgery, do not lift anything with that arm. If you are in a knee brace, keep it locked in place until your follow-up. We will discuss your weight bearing, range of motion, and lifting restrictions in detail at your first post-operative appointment. Continuous Passive Motion (CPM) Machine If you were prescribed a CPM machine, it will start after your first post- operative appointment, at which time we will give you instructions on the range of motion settings and duration of treatment Physical therapy You will be given a prescription for physical therapy or occupational therapy at your first post-operative appointment. Typically, patients start therapy within 1 week of surgery Wound care and showering We will inspect your wound at your first post-operative visit, and may do a dressing change at that time. Most patients will be in a water-proof dressing that is removed 14 days after surgery. It is normal to see some dried blood on the dressing. Do not remove your dressing, paper strips or sutures yourself unless you are given permission. Showering is allowed the day after surgery. Do not scrub or remove any dressings. The wound should not be submerged underwater (i.e. in a bathtub or pool) until 4 weeks after surgery CONOR stockings If you were given white stockings, these are to be worn at all times except to shower (on both legs) for the first 2 weeks after surgery. Driving You may not drive while taking narcotic pain medication or while in a cast, splint, sling or brace. You, the patient, need to make the final determination about when you are safe to drive, however, the earliest you may consider driving after surgery is below: Hand/Wrist/Elbow Surgery: 3 days Shoulder Surgery: 2 weeks Hip,/Knee/Ankle Surgery: 4 weeks Fracture repair: 6 weeks Return to Work Your return to work depends on what surgery was done and what type of work you do. Please bring any paperwork your employer needs completed to your first post-operative visit. Also, bring a description of your job duties, as this helps us to understand what risks you may face at work. Travel Avoid long distance travel (greater than 1 hour) in airplanes and cars for the first 6 weeks after surgery. If you must travel, you need to have a Doppler ultrasound done before you travel to rule out a blood clot in your legs. Follow-up You should have a follow-up appointment already scheduled 1-2 days after surgery. If not, please contact our office to make this appointment before you leave the hospital. When to call the office It is normal to have swelling and bruising in the limb that was operated on. This will improve with time. It is also normal to have fevers for the first 2 days after surgery. Reasons you should call your doctor include: Uncontrolled pain; Nausea, vomiting, or constipation that does not improve with medication; Fevers over 101.5, chills, sweats; Drainage or bleeding from the wound; Foul odor; Spreading areas of redness; Any other concerns Pending Studies at Discharge: No Stand-Alone Forms: [facility] Medications and DC Order Prescriptions: New tramadol 50 mg tablet 50 mg PO Q6H PRN (Reason: pain) Qty: 30 RF: 0 diclofenac sodium 75 mg tablet,delayed release (DR/EC) 75 mg PO BID PRN (Reason: pain) 30 Days Qty: 60 RF: 1 Continued cyanocobalamin (vitamin B-12) [Vitamin B-12] 1,000 mcg Tablet 1,000 mcg PO DAILY RF: 0 travoprost [Travatan Z] 0.004 % Drops 1 drp OPHTHALMIC (EYE) PM RF: 0 pantoprazole 20 mg Tablet,Delayed Release (Dr/Ec) 20 mg PO QAM RF: 0 losartan-hydrochlorothiazide 100-25 mg Tablet 1 tab PO QAM RF: 0 gemfibrozil 600 mg Tablet 600 mg PO QAM RF: 0 Restasis 0.05 % Dropperette 1 drp OPHTHALMIC (EYE) Q12H RF: 0 cholecalciferol (vitamin D3) [Vitamin D3] 25 mcg (1,000 unit) Tablet 25 mcg PO DAILY RF: 0 potassium gluconate 595 mg (99 mg) Tablet 595 mg PO DAILY RF: 0 Centrum Silver Women 8 mg iron-400 mcg-300 mcg Tablet 1 tab PO DAILY RF: 0 docusate sodium [Stool Softener] 100 mg Capsule 200 mg PO QAM RF: 0 diphenhydramine-acetaminophen [Tylenol PM Extra Strength] 25-500 mg Tablet 1 tab PO HS PRN (Reason: Pain) RF: 0 Changed aspirin [Aspirin Low Dose] 81 mg Tablet,Delayed Release (Dr/Ec) 81 mg PO BID Qty: 0 RF: 0 acetaminophen [Tylenol Arthritis Pain] 650 mg Tablet Extended Release 1,300 mg PO Q8 PRN (Reason: Pain) Qty: 0 RF: 0 Discharge Orders: Discharge Order (Routine); Ordered 07/29/19 Ordered By: Pedro Ward Admission Data Admit Date/Time: 07/28/19 11:32 Attending Provider: Michael Vo Admit Provider: Michael Vo Primary Care Provider: [email or web address]
[2019-07-29] MEDS: TRAMADOL HCL 50 MG TABLET PO PRN (11:44)
== END 2019-07-29 13:37 | disposition home health service (06) | DRG 470 ==
LOC: ASU 07:23 → 3E 11:32

== ENCOUNTER 2023-08-18 08:36 | Inpatient (IN) ==
--- NOTE | 2023-08-18 09:16 | Emergency Department Note ---
Impression & Plan Acute pancreatitis ADMIT ED Provider Note HPI: History obtained from patient. The patient is a 83-year-old female with surgical history consistent with a cholecystectomy as well as an appendectomy, who presents the emergency department with right-sided abdominal pain as well as nausea and vomiting that has been ongoing for the past 2 days. Patient states her symptoms began Thursday, she states she has pain to the right side of her abdomen that seems to radiate from the right flank area across. Patient states she has had multiple issues with vomiting since Thursday night as well. Patient denies any diarrhea. On arrival here to the ED the patient is hemodynamically stable. ROS: - Per HPI Differential Diagnosis: Acute gastritis, acute pancreatitis, choledocholithiasis, small bowel obstruction, diverticulitis flare, ischemic colitis, kidney stone, amongst other potential pathologies. *Outpatient medications and allergy history reviewed. PE: General: Alert HEENT: Normocephalic, trachea midline Eyes: Extraocular eye movement is intact, no scleral erythema Pulmonary: Clear to auscultation bilaterally, no wheezing Cardio: Regular rate and rhythm GI: Abdomen is soft to palpation, moderate tenderness to the right side of the abdomen without distention, no guarding or rigidity : No suprapubic tenderness MSK: No evidence of trauma or malformation of the extremities, no edema Skin: No evidence of rash Neuro: Alert, no focal deficits Psychiatric: Cooperative INDEPENDENT INTERPRETATIONS: vehicle monitor technician: (As interpreted by myself): - An order was placed for continuous cardiac monitoring - Patient was noted to be in sinus rhythm with a rate of 85 EKG: (As interpreted by myself): Rate: 81 Rhythm: Sinus rhythm Intervals: Within normal limits ST changes: No ST elevation Time: 0912 Interventions provided in ED: -IV fluid bolus, IV Zofran Medical Decision Making: IV was established and lab work obtained, patient was placed on cardiac monitor technician. Lab work shows a leukocytosis of 12.33, hemoglobin is normal, platelet count is normal, CMP shows baseline creatinine at 1.26, bilirubin is normal, there is no transaminitis, lipase is markedly elevated at 1538. Initial troponin is mildly elevated at 19.0. Patient denies any chest pain, EKG shows sinus rhythm without acute ischemic changes per my interpretation, low suspicion for ACS. Urinalysis shows trace ketones but no obvious evidence of infection. CT imaging of the abdomen pelvis is consistent with acute pancreatitis, there is some mild biliary ductal dilatation as well as mild thickening of the common bile duct wall. Recommendation was made to correlate with LFTs per the interpreting radiologist, LFTs are normal and bilirubin is normal. Patient does not have any significant abdominal pain on my reevaluation, I did discuss the patient's presentation with on-call gastroenterology, Dr. Plasencia, who recommends admission to the hospitalist service for further workup as an inpatient including possibly MRCP. I did discuss the patient's presentation with the on-call hospitalist for [facility] [place] [facility] Dr. Armstrong, and the patient was accepted for inpatient care and further management. GI consultation was placed. Patient was in agreement for admission and she was placed for admission in stable condition. Consultants/Discussions held with other healthcare providers: -Gastroenterology, Dr. Plasencia -Hospitalist, Dr. Armstrong Disposition discussion held by myself with: -Patient Diagnosis: 1. Acute pancreatitis 2. Abdominal pain, acute 3. Nausea and vomiting 4. Ketonuria, acute 5. Leukocytosis, acute Disposition: Admission Saurabh Lerma DO Emergency Medicine Past Med/Surg History Problem List (Updated 08/18/23 @ 12:30 by Saurabh Lerma DO) Acute pancreatitis (Acute) Acute pancreatitis S/P total hip arthroplasty Encounter for pre-operative examination Osteoarthritis of left hip Medical History (Updated 08/18/23 @ 12:30 by Saurabh Lerma DO) Hip pain GROIN INTO THE KNEE PAIN BELIVED TO BE RELATED TO THE HIP AREA Chronic back pain Osteoarthritis GERD (gastroesophageal reflux disease) Anxiety Hyperlipidemia Hypertension Glaucoma TREATED FOR HIGH PRESSURE History of tachycardia R/T ANXIETY Surgical History S/P epidural steroid injection S/P OZIEL-BSO Hx of umbilical hernia repair History of cholecystectomy History of appendectomy History of colonoscopy History of section History of cataract surgery BILATERAL Family History Mother FHx: glaucoma Other No family history of adverse response to anesthesia Social History Smoking Status: Never smoker Second Hand Exposure: Yes (HX); Do You Dip or Chew Tobacco: No; Hx Alcohol Use: Yes Alcohol type: wine Hx Substance Use: No Preferred Language: Bengali Communication Ability: Effective Sash Finisher Required: No Beliefs That Will Affect Care: None marital status: Current Living Situation: Spouse Feels Safe at Home: Yes Assistive Devices: Glasses and Walker Allergies Allergies Allergy/AdvReac Type Severity Reaction Status Date / Time No Known Drug Allergies Allergy 0 Verified 08/18/23 11:37 nickel AdvReac Intermediate SKIN Verified 08/18/23 11:37 IRRITATION Home Meds Home Medications Medication Instructions Recorded Confirmed cholecalciferol (vitamin D3) 25 25 mcg PO DAILY 07/21/19 08/18/23 mcg (1,000 unit) tablet (Vitamin D3) cyanocobalamin (vitamin B-12) 1,000 mcg PO DAILY 07/21/19 08/18/23 1,000 mcg tablet (Vitamin B-12) cyclosporine 0.05 % eye drops in a 1 drp ophthalmic (eye) Q12H 07/21/19 08/18/23 dropperette (Restasis) diphenhydramine 25 1 tab PO HS PRN Pain 07/21/19 08/18/23 mg-acetaminophen 500 mg tablet (Tylenol PM Extra Strength) docusate sodium 100 mg capsule 200 mg PO QAM 07/21/19 08/18/23 (Stool Softener) gemfibrozil 600 mg tablet 600 mg PO QAM 07/21/19 08/18/23 losartan 100 1 tab PO QAM 07/21/19 08/18/23 mg-hydrochlorothiazide 25 mg tablet [id number]-[id number] 8 mg-folic 400 1 tab PO DAILY 07/21/19 08/18/23 mcg-K 50 mcg-lutein 300 mcg tablet (Centrum Silver Women) pantoprazole 20 mg tablet,delayed 20 mg PO QAM 07/21/19 08/18/23 release potassium gluconate 595 mg (99 mg) 595 mg PO DAILY 07/21/19 08/18/23 tablet travoprost 0.004 % eye drops 1 drp ophthalmic (eye) PM 07/21/19 08/18/23 (Travatan Z) losartan 50 mg tablet 50 mg PO DAILY 08/18/23 08/18/23 naproxen sodium 220 mg tablet 440 mg PO Q12H PRN Pain 08/18/23 08/18/23 (Aleve) Previous Rx's Medication Instructions Recorded tramadol 50 mg tablet 50 mg PO Q6H PRN pain #30 tabs 07/29/19 Results & Data (ED) Vital Signs Vital Signs - 24 hr 08/18/23 08:44 08/18/23 09:19 08/18/23 09:36 Temperature 36.8 C Temperature Source Temporal Artery Scan Pulse Rate 18 L 82 Pulse Rate [Right Finger] 82 Pulse Rhythm [Right Finger] Regular Pulse Strength [Right Finger] Normal Respiratory Rate 18 16 Respiratory Effort / Characteristics Non-Labored Spontaneous Non-Labored Spontaneous Respiratory Depth Normal Normal Respiratory Pattern Regular Regular Blood Pressure 115/63 Blood Pressure [Left Arm] 138/84 Blood Pressure Mean 80 Blood Pressure Mean [Left Arm] 102 Blood Pressure Position [Left Arm] Lying Pulse Oximetry 85 L 94 Oxygen Delivery Method Room Air Room Air Sepsis Recent Fever Within 48 Hours No Sepsis New/Unexplained Change in Mental Status No Sepsis Action Taken by Nursing No Action Required 08/18/23 11:00 Temperature Temperature Source Pulse Rate Pulse Rate [Right Finger] 82 Pulse Rhythm [Right Finger] Pulse Strength [Right Finger] Respiratory Rate 17 Respiratory Effort / Characteristics Respiratory Depth Normal Respiratory Pattern Blood Pressure Blood Pressure [Left Arm] 149/80 H Blood Pressure Mean Blood Pressure Mean [Left Arm] 103 Blood Pressure Position [Left Arm] Lying Pulse Oximetry 95 Oxygen Delivery Method Room Air Sepsis Recent Fever Within 48 Hours Sepsis New/Unexplained Change in Mental Status Sepsis Action Taken by Nursing Laboratory Data 08/18/23 09:16 08/18/23 09:16 Lab Results 08/18/23 Range/Units 09:16 WBC 12.33 H (4.8-10.8) K/ul RBC 4.69 (4.20-5.40) M/uL Hgb 14.0 (12.0-16.0) g/dl Hct 41.8 (37.0-47.0) % MCV 89.1 (80.0-100.0) fL MCH 29.9 (25.0-34.0) pg MCHC 33.5 (32.0-36.0) g/dL RDW Std Deviation 42.0 (36.4-46.3) fL RDW Coeff of Josh 12.9 (11.5-14.5) % Plt Count 163 (130-400) K/uL MPV 12.6 H (9.4-12.4) fL Immature Gran % (Auto) 0.3 % Neut % (Auto) 80.5 % Lymph % (Auto) 9.7 % Pine % (Auto) 7.1 % Eos % (Auto) 2.2 % Baso % (Auto) 0.2 % Neut # (Auto) 9.94 H (1.40-6.50) K/uL Lymph # (Auto) 1.19 L (1.20-3.40) K/uL Pine # (Auto) 0.87 H (0.11-0.59) K/uL Eos # (Auto) 0.27 (0.00-0.50) K/uL Baso # (Auto) 0.02 (0.00-0.20) K/uL Immature Gran # (Auto) 0.04 (0.01-0.20) K/uL PT 11.8 (9.0-12.0) Seconds INR 1.1 (0.9-1.1) Sodium 139 (136-145) mmol/L Potassium 3.6 (3.5-5.1) mmol/L Chloride 101 (98-107) mmol/L Carbon Dioxide 27 (21-32) mmol/L Anion Gap 11 (3-11) BUN 24 H (6-23) mg/dl Creatinine 1.26 H (0.6-1.2) mg/dl Est Cr Clr Drug Dosing 32.2 ml/min Est GFR ( Amer) 45.9 ml/min Est GFR (Non-Af Amer) 39.6 ml/min BUN/Creatinine Ratio 19.0 (10-20) Glucose 144 H (70-99(Fasting)) mg/dl Calcium 9.9 (8.6-10.3) mg/dl Total Bilirubin 0.9 (0.2-1.0) mg/dl AST 17 (13-39) U/L ALT 13 (7-52) U/L Alkaline Phosphatase 81 (34-104) U/L Troponin I High Sens 34.2 H (0-14) pg/ml Total Protein 7.5 (6.0-8.3) gm/dl Albumin 4.5 (3.4-5.0) gm/dl Globulin 3.0 (2.5-4.0) gm/dl Albumin/Globulin Ratio 1.5 (0.9-2) Lipase 1538 H (11-82) U/L Urine Color Yellow Urine Appearance Turbid A (Clear) Urine pH 7.5 (4.5-7.5) Ur Specific [place] 1.018 (1.000-1.030) Urine Protein 2+ H (Negative) Urine Glucose (UA) Negative (Negative) Urine Ketones Trace H (Negative) Urine Blood Negative (Negative) Urine Nitrite Negative (Negative) Urine Bilirubin Negative (Negative) Urine Urobilinogen Negative (Negative) Ur Leukocyte Esterase Negative (Negative) Urine WBC (Auto) 0-5 (0-5) /hpf Urine RBC (Auto) 0-2 (0-2) /hpf U Hyaline Cast (Auto) 0-2 (0-2) /lpf U Epithel Cells (Auto) 3-5 H (0-2) /hpf Urine Bacteria (Auto) None Seen (None Seen) Administered Medications Discontinued Medications Sodium Chloride (Nss) 1,000 mls @ 999 mls/hr IV .Q1H1M STA Stop: 08/18/23 09:58 Last Infusion: 08/18/23 10:19 Dose: Infused Documented By: Admin: 08/18/23 09:18 Dose: 999 mls/hr Documented By: SHILPA Sodium Chloride (Nss) 500 mls @ 999 mls/hr IV .Q31M ONE Stop: 08/18/23 09:37 Last Infusion: 08/18/23 10:19 Dose: Infused Documented By: Admin: 08/18/23 09:29 Dose: 999 mls/hr Documented By: SHILPA Ioversol (Optiray 320 100ml) 93 ml IV ONCE ONE Stop: 08/18/23 10:31 Last Admin: 08/18/23 10:31 Dose: 93 ml Documented By: KASIE Ondansetron HCl (Ondansetron Inj 2 Mg/Ml 2 Ml Vial) 4 mg IV NOW STA Stop: 08/18/23 09:08 Last Admin: 08/18/23 09:21 Dose: 4 mg Documented By: SHILPA Imaging Data Radiologist's Impression: Abdomen/Pelvis CT 08/18/23 09:14 CT OF THE ABDOMEN AND PELVIS WITH CONTRAST CLINICAL HISTORY: Nausea and vomiting. Right-sided abdominal pain. COMPARISON STUDY: None. TECHNIQUE: Following IV administration of 93 mL of Optiray, axial images of the abdomen and pelvis were obtained from the lung bases to the proximal femurs. Images were reviewed in the axial, sagittal, and coronal planes. IV contrast was administered without complication. Automated exposure control was utilized for the study. A dose lowering technique was utilized adhering to the principles of ALARA. CT DOSE: 903.43 mGy.cm FINDINGS: Lung bases are unremarkable. No pneumatosis, free air or portal venous gas is present. Subcentimeter right hepatic lobe lesion represents a cyst. The common bile duct measures 1 cm in caliber following cholecystectomy. There is mild wall thickening of the common bile duct. A few small peripheral enhancing foci of overlying the right hepatic lobe measure up to 7 mm. The spleen and adrenal glands are unremarkable. There are several renal cysts. There is no hydronephrosis. Moderate peripancreatic fluid extends into the mesentery. There are no peripancreatic fluid collections. Pancreas is slightly edematous. There is mild dilatation of the pancreatic duct, measuring 5 mm in caliber. Pancreas divisum is present. No evidence for gland necrosis. No evidence for a bowel obstruction. A small amount of fluid within the pelvis is noted. There is extensive sigmoid diverticulosis without evidence for acute diverticulitis. Left hip arthroplasty is intact. Umbilical hernia repair with mesh. IMPRESSION: 1. Findings consistent with acute pancreatitis. Peripancreatic fluid extending into the mesentery. No peripancreatic fluid collections. No evidence for gland necrosis. Pancreas divisum. Mild dilatation of the pancreatic duct. 2. Mild biliary ductal dilatation status post cholecystectomy and mild wall thickening of common bile duct. Correlation with liver function tests is recommended. 3. A few subcentimeter peripheral enhancing foci overlying the right hepatic lobe. These are nonspecific but may reflect small dropped gallstones. 4. Small amount of fluid within the pelvis. 5. Extensive sigmoid diverticulosis. No evidence for acute diverticulitis. ACT 112: Negative or not required by law. Electronically signed by: Mansoor Mathews M.D. 08/18/2023 11:02 AM Discharge Plan Visit Data Chief Complaint: Vomiting Stated Complaint: VOMITING, CONSTIPATED ED Provider: Saurabh Lerma Discharge Problem: Acute pancreatitis Forms Stand Alone Forms: [facility] Immune Targeting Systems Prescriptions Prescriptions: No Action cyanocobalamin (vitamin B-12) [Vitamin B-12] 1,000 mcg Tablet 1,000 mcg PO DAILY travoprost [Travatan Z] 0.004 % Drops 1 drp OPHTHALMIC (EYE) PM pantoprazole 20 mg Tablet,Delayed Release (Dr/Ec) 20 mg PO QAM losartan-hydrochlorothiazide 100-25 mg Tablet 1 tab PO QAM gemfibrozil 600 mg Tablet 600 mg PO QAM cyclosporine [Restasis] 0.05 % Dropperette 1 drp OPHTHALMIC (EYE) Q12H cholecalciferol (vitamin D3) [Vitamin D3] 25 mcg (1,000 unit) Tablet 25 mcg PO DAILY potassium gluconate 595 mg (99 mg) Tablet 595 mg PO DAILY Centrum Silver Women 8 mg iron-400 mcg-300 mcg Tablet 1 tab PO DAILY docusate sodium [Stool Softener] 100 mg Capsule 200 mg PO QAM Tylenol PM Extra Strength 25-500 mg Tablet 1 tab PO HS PRN (Reason: Pain) tramadol 50 mg tablet 50 mg PO Q6H PRN (Reason: pain) Qty: 30 0RF losartan 50 mg tablet 50 mg PO DAILY naproxen sodium [Aleve] 220 mg Tablet 440 mg PO Q12H PRN (Reason: Pain) Referrals Referrals: Tracy Guadarrama MD [Primary Care Provider] - Discharge Problem: Acute pancreatitis Qualifiers: Pancreatitis type: unspecified pancreatitis type Acute pancreatitis complication: unspecified Qualified Code(s): K85.90 - Acute pancreatitis without necrosis or infection, unspecified
[2023-08-18] MEDS: SODIUM CHLORIDE 0.9% 1,000 ML IV STA (09:18)
[2023-08-18] MEDS: ONDANSETRON INJ 2 MG/ML 2 ML VIAL IV STA (09:21)
[2023-08-18] MEDS: SODIUM CHLORIDE 0.9% 500 ML IV ONE ×2 (09:29→12:45)
[2023-08-18 09:55] LABS: Basophils # (auto) 0.02 K/uL (0.00-0.20); Basophils % (auto) 0.2 %; Eosinophils # (auto) 0.27 K/uL (0.00-0.50); Eosinophils % (auto) 2.2 %; Hematocrit (blood only) 41.8 % (37.0-47.0); Immature Granulocytes # (auto) 0.04 K/uL (0.01-0.20); Immature Granulocytes % (auto) 0.3 %; Lymphocytes # (auto) 1.19 K/uL (1.20-3.40); Lymphocytes % (auto) 9.7 %; Mean Corpuscular Hemoglobin 29.9 pg (25.0-34.0); Mean Corpuscular Hgb Conc 33.5 g/dL (32.0-36.0); Mean Corpuscular Volume 89.1 fL (80.0-100.0); Mean Platelet Volume 12.6 fL (9.4-12.4); Monocytes # (auto) 0.87 K/uL (0.11-0.59); Monocytes % (auto) 7.1 %; Neutrophils # (auto) 9.94 K/uL (1.40-6.50); Neutrophils % (auto) 80.5 %; Platelet Count 163 K/uL (130-400); RDW Coefficient of Variation 12.9 % (11.5-14.5); Red Blood Count 4.69 M/uL (4.20-5.40); White Blood Count 12.33 K/ul (4.8-10.8)
[2023-08-18 10:12] LABS: Calcium 9.9 mg/dl (8.6-10.3); Creatinine Clr Calc Pharmacy 32.2 ml/min; Est GFR (African American) 45.9 ml/min; Est GFR (Non-African American) 39.6 ml/min; Potassium 3.6 mmol/L (3.5-5.1)
[2023-08-18 10:18] LABS: Troponin I High Sensitivity 34.2 pg/ml (0-14)
[2023-08-18 10:23] LABS: INR 1.1 (0.9-1.1); Prothrombin Time 11.8 Seconds (9.0-12.0)
[2023-08-18] MEDS: OPTIRAY 320 100ml IV ONE (10:31)
[2023-08-18 10:32] LABS: Albumin Globulin Ratio 1.5 (0.9-2); Albumin Level 4.5 gm/dl (3.4-5.0); Bilirubin,Total 0.9 mg/dl (0.2-1.0); Total Protein 7.5 gm/dl (6.0-8.3)
--- OUTSIDE RECORDS SUMMARY | 2023-08-18 10:47 | External Medical Summary | Summary of Care ---
Author Name Unknown Organization [facility] Address [address] [facility] [place] [address] Phone [phone] Care Team Providers Care Belt Picker Name Role Phone Tracy Guadarrama MD Primary Care Provid er Encounter Details Date Type Department Care Team (Late st Contact Info) Description 07/23/2023 Orders Only PATIENT PORTAL DO NOT DELETE THIS DEPT USED BY DANIELE FLANAGAN [id number] Allergies Active Allergy Reactions Criticality Noted Date Comments Etodolac Hives 11/29/2001 documented as of this encounter (statuses as of 07/23/2023) Medications Medication Sig Dispensed Refills Start Date End Date Status RESTASIS 0.05 % OP EMUL 1 drop both eyes daily Active TRAVATAN Z 0.004 % OP SOLN 1 drop both eyes at bedtime Active Centrum Silver 50+Women Oral Tablet Start: 07/12/19 9:49:00 EDT, 1 tab, PO, Daily 07/12/2019 Active Fluticasone Propionate 50 MCG/ACT Nasal SuspensionIndicatio ns:Post-nasal drip Administer into each nostril 2 Sprays in the morning. 16 g 5 07/29/2021 Active Oxymetazoline HCl 0.05 % Nasal Solution Administer 2 Sprays into nostril in the morning and 2 Sprays before bedtime. Active Losartan Potassium 50 MG Oral Tablet (Cozaar)Indications :Hypertensive kidney disease with stage 3b chronic kidney disease (HCC) Take 1 Tablet by mouth in the morning. 90 Tablet 3 12/01/2022 Active Gemfibrozil 600 MG Oral Tablet (Lopid)Indications: Hypertriglyceridemi a Take one tablet daily 90 Tablet 3 12/01/2022 Active Pantoprazole Sodium 20 MG Oral Tablet Delayed Release (Protonix)Indicatio ns:Heartburn Take 1 Tablet by mouth in the morning. 90 Tablet 3 12/01/2022 Active Hospital, Clinic, or Other Facility Administered Medication Ordered Dose Route Frequency Start Date End Date Status albuterol (PROVENTIL HFA) inhaler 4 PuffIndications:Cough 4 Puff IN Q4H PRN 10/28/2016 Act vicki documented as of this encounter (statuses as of 07/23/2023) Active Problems Problem Noted Date Diagnosed Date Hypertensive kidney disease with stage 3b chronic kidney disease 08/07/2020 Overview: Per CKD protocol S/P total hip arthroplasty 07/27/2020 Prediabetes 04/07/2017 Overview: Per Prediabetes protocol #1 Tear film insufficiency 10/30/2009 Cataract 10/30/2009 ALLERGIC RHINITIS - MIXED TYPE 10/30/2009 Postnasal drip 10/30/2009 DYSLIPIDEMIA, GOAL LDL BELOW 100 02/05/2009 Overview: Per Lipid Taxonomy. Subjective tinnitus 09/25/2008 Esophageal reflux 09/25/2008 ADVANCE DIRECTIVE INFORMATION 11/06/2006 Overview: Yes-advised to bring copy in to be scanned into EMR. HTN, goal below 140/90 Overview: Per HTN Taxonomy. documented as of this encounter (statuses as of 07/23/2023) Resolved Problems Problem Noted Date Diagnosed Date Resolved Date Chronic kidney disease, stage 3b 07/03/2020 12/01/2022 Overview: Per CKD protocol Hypertensive kidney disease with stage 3a chronic kidney disease 01/02/2020 08/09/2020 Overview: Per CKD protocol Hypertensive kidney disease with chronic kidney disease stage III 10/29/2018 01/05/2020 Overview: Per CKD protocol HTN, goal below 130/80 03/21/200912/01 Overview: Per HTN Taxonomy. Dyspnea and respiratory abnormality 09/25/2008 08/06/2009 Overview: ICD-10 update of inactive term Hypertrophy of nasal turbinates 09/25/2008 08/06/2009 Deviated nasal septum 09/25/20082009 Chronic rhinitis 09/25/2008 10/30/2009 Kidney disease, chronic, sta ge III (GFR 30-59 ml/min) 03/18/2007 12/08/2018 Overview: Based on GFR of 59.1 on 10/07/06. Dyslipidemia, goal to be determined 07/14/2000 02/05/2009 Overview: Per Lipid Taxonomy. Need for prophylactic hormon e replacement therapy (postmenopausal) 10/24/2016 documented as of this encounter (statuses as of 07/23/2023) Immunizations Name Administration Dates Next Due COVID-19 mRNA, LNP-s, No Pre serve, 2-Dose Series (Moderna) 05/09/2020,04/11/2020 COVID-19, mRNA, LNP-s, PF, B ooster, 100mcg/0.5mg (Moderna) 06/17/2021,12/29/2020 Pneumococcal Conjugate Vacc, 13 Valent (Prevnar) 10/06/2014 Pneumococcal Polysaccharide PPV23 (Pneumovax) Season Influenza, Quad, PF, Adjuvanted, 65+ Yrs, IM (FLUAD) 12/04/2020,12/14/2019 Seasonal Influenza, PF, 6 M & above, IM , (FluLaval or Fluzone) 11/05/2017 Seasonal Influenza, Quadrivalent Hd (Fluzone Hd) 12/01/2022,12/03/2021 Seasonal Influenza, Split, IIV3, With Preserve, Inj 12/12/2009 Seasonal Influenza, Trivalent, Adjuvanted, 65+ y rs 11/08/2018 TDAP (age 10 and older)(Boostrix) 10/02/2011 Varicella Zoster Vaccine (Adult) 12/12/2009 Zoster Vaccine Recombinant (Shingrix) 12/06/2019 ,09/13/2019 documented as of this encounter Social History Tobacco Use Types Packs/Day Years Used Date Smoking Tobacco: Former Cigarettes 1 5 0 02/24/1964 - 02/23/1969 Passive Smoke Exposure: Past Smokeless Tobacco: Never Comments:no passive smoke Alcohol Use Standard Drinks/Week Comments Yes 0 (1 standard drink = 0.6 oz pur e alcohol) usually 1 glass wine a day PHQ-2 Answer Date Recorded PHQ Adult Total Score 0 12/03/2021 Hunger Vital Sign Answer Date Recorded Within the past 12 months, y ou worried that your food would run out before you got the money to buy more. Never true 12/02/19 23 Within the past 12 months, t he food you bought just didn't last and you didn't have money to get more. Never true 12/01/2022 Sex and Gender Information Value Date Recorded Sex Assigned at Female 07/01/2022 10:03 AM EDT Gender Identity Female 07/01/2022 10:03 AM EDT Sexual Orientation Straight 07/01/2022 10 :03 AM EDT Job Start Date Occupation Industry Not on file Not on file Not on file documented as of this encounter Plan of Treatment Upcoming Encounters Date Type Department Care Team (Late st Contact Info) Description 12/08/2023 10:40 AM EDT Office Visit [facility] [address] [place] [address] Tracy Guadarrama MD [address] [place] [address] Health Maintenance Due Date Last Done Comments DTaP,Tdap,and Td Vaccines (2 - Td or Tdap) 10/01/2021 10/02/2011, 03/24/1997 COVID-19 Vaccine (2022- season) 2022 06/17/2021, 12/29/2020, 05/09/2020, Additional history exists Depression Screening 12/03/2022 12/03/2021 CKD PHOS USE SMARTSET [id number] 08/14/2023 06/2 02/2022, 07/16/2021, 07/11/2020, Additional history exists Albumin/Creatinine Ratio 11/27/2023 023, 11/29/2021, 11/05/2017, Additional history exists HbA1c 11/27/2023 11/26/2022, 08/2021, 07/16/2021, Additional history exists CKD HGB USE SMARTSET [id number] 01/01/202412/31, 12/31/2022, 08/13/2022, Additional history exists GFR 01/10/2024 07/10/2023, 09/2022, 11/26/2022, Additional history exists Pneumococcal Vaccine: 65+ Years Completed 10/06/2014, 10/07/2006 Zoster Vaccines Completed 12/06/2019, 08/24, 12/12/2009 Influenza Vaccine (FLU shot) Completed 10/2022, 12/03/2021, 12/04/2020, Additional history exists GARDASIL-HPV IMMUNIZATION SERIES Aged Out No longer eligible based on patient's age to complete this topic Hepatitis B Aged Out No longer eligi ble based on patient's age to complete this topic MENINGOCOCCAL (MENACTRA/MENVEO) Aged Out No longer eligible based on patient's age to complete this topic documented as of this encounter Medical Devices Not on filedocumented as of this encounter Care Teams Belt Picker Relationship Specialty Start Date End Date Tracy Guadarrama MD [address] [place] [address] PCP - General Family Medicine 12/03/21 documented as of this encounter
--- OUTSIDE RECORDS SUMMARY | 2023-08-18 10:47 | External Medical Summary ---
Author Name Unknown Address Unknown Organization [id number]:[facility] [place] [address] [place] [address] Laboratory Report Ordering Provider Test Date Status LAINE WELCH 07/10/2023 09:28:41 Final Observation Date Value Abnormality Reference (Units ) Status Triglyceride 07/10/2023 09:28:41 233 Above high normal <=174 (mg/dL) Final Triglyceride Reference Range s (mg/dL):
<150 Acceptable
150-174 Borderline high
175-499 High
>=500 Very high Cholesterol 07/10/2023 09:28:41 168 <200 (mg /dL) Final Total Cholesterol Reference Ranges (mg/dL):
<200 Desirable
200-239 Borderline high
>=240 High HDL 07/10/2023 09:28:41 40 Below low normal >49 (mg/dL) Final HDL Cholesterol Reference Ra nges (mg/dL):
>=60 High (Desirable)
<50 Low (Undesirable) For Females
<40 Low (Undesirable) For Males NON-HDL CHOLESTEROL 07/10/2023 09:28:41 128 <=159 (mg/dL) Final Non-HDL Cholesterol Referenc e Range (mg/dL):
<100 Target level for high risk ASCVD patient
<130 Optimal for general population
130-159 Near optimal for general population
160-189 Borderline High
190-219 High
>=220 Very High Performing Location [facility] [place] [address] [place] [address]
--- OUTSIDE RECORDS SUMMARY | 2023-08-18 10:47 | External Medical Summary ---
Author Name Unknown Address Unknown Organization [id number][place] [address] [place] [address] Laboratory Report Ordering Provider Test Date Status LAINE WELCH 07/10/2023 09:28:41 Final Observation Date Value Abnormality Reference (Units ) Status LDL, (direct) 07/10/2023 09:28:41 78 <=129 (mg/dL) Final LDL Cholesterol Reference Ra nges (mg/dL):
<70 Target level for high risk ASCVD patient
<100 Optimal for general population
100-129 Near optimal for general population
130-159 Borderline high
160-189 High
>=190 Very high Performing Location [facility] - [address] [place] [address]
--- OUTSIDE RECORDS SUMMARY | 2023-08-18 10:47 | External Medical Summary | Summary of Care ---
Author Name Unknown Organization [facility] Address [address] [facility] [place] [address] Phone [phone] Care Team Providers Care Advanced Practice Professional Name Role Phone Tracy Guadarrama MD Primary Care Provid er Reason for Visit * Reason Comments Follow Up Pt states that she i s here for a 6 month follow up Encounter Details Date Type Department Care Team (Late st Contact Info) Description 07/21/2023 11:20 AM EDT Office Visit [facility] [address] [place] [address] Tracy Guadarrama MD [address] [place] [address] Hypertensive kidney disease with stage 3b chronic kidney disease (HCC)*; DYSLIPIDEMIA, GOAL LDL BELOW 100; Prediabetes; HTN, goal below 140/90; Gastroesophageal reflux disease, unspecified whether esophagitis present; Encounter for long-term (current) use of medications Allergies Active Allergy Reactions Criticality Noted Date Comments Etodolac Hives 11/29/2001 documented as of this encounter (statuses as of 07/21/2023) Medications Medication Sig Dispensed Refills Start Date [...] as of this encounter (statuses as of 07/21/2023) Active Problems Problem Noted Date Diagnosed Date [...] as of this encounter (statuses as of 07/21/2023) Resolved Problems Problem Noted Date Diagnosed Date [...] as of this encounter (statuses as of 07/21/2023) Immunizations Name Administration Dates Next Due COVID-19 [...] Passive Smoke Exposure: Past Smokeless Tobacco: Never Tobacco Cessation:Counseling Given: Not Answered Comments:no passive smoke Alcohol Use Standard Drinks/Week [...] on file documented as of this encounter Last Filed Vital Signs Vital Sign Reading Time Taken Comments Blood Pressure 130/82 07/21/2023 11:14 AM EDT Pulse 72 07/21/2023 11:14 AM EDT Temperature 36.2 C (97.1 F) 07/21/2023 11:14 AM E DT Respiratory Rate 16 07/21/2023 11:14 AM EDT Oxygen Saturation 97% 07/21/2023 11:14 AM EDT Inhaled Oxygen Concentration - - Weight 68.2 kg (150 lb 6.4 oz) 07/21/2023 11:14 AM EDT Height 160 cm (5' 3") 07/21/2023 11:14 AM EDT Body Mass Index 26.64 07/21/2023 11:14 AM EDT documented in this encounter Progress Notes * Tracy Guadarrama MD - 07/21/2023 11:27 AM EDT ASSESSMENT / PLAN: Amie Cazares is a 83 year old female with PMHx GERD / HTN / dyslipidemia / CKD 3b / HTN - here for 6 mo return #Prediabetes Controlled with diet. 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 Elizondo no acute issues #Chronic kidney disease, stage 3b Kidney failure risk score = 4 points <5.0% 5 yr risk of kidney failure Control HTN and prediabetes. Hydration. DC HCTZ in June 2022 Cont losartan #HTN Controlled cont losartan #GERD Controlled continue PPI #HLD Controlled continue fibrates Follow Up: Return in about 6 months (around 01/21/2024) for Labs 2-5 Days Before Next Visit. | For:Labs 2-5 Days Before Next Visit Hypertensive kidney disease with stage 3b chronic kidney disease (HCC) (Primary) - COMPREHENSIVE METABOLIC PANEL; Future; Expected date: 01/21/2024 - PHOSPHORUS; Future; Expected date: 07/21/2023 - CBC WITH WBC DIFFERENTIAL AND ANEMIA REFLEX WORKUP; Future; Expected date: 07/21/2023 DYSLIPIDEMIA, GOAL LDL BELOW 100 Prediabetes - HEMOGLOBIN A1C; Future; Expected date: 01/21/2024 HTN, goal below 140/90 Gastroesophageal reflux disease, unspecified whether esophagitis present Encounter for long-term (current) use of medications - VITAMIN B12; Future; Expected date: 01/21/2024 - CBC WITH WBC DIFFERENTIAL AND ANEMIA REFLEX WORKUP; Future; Expected date: 07/21/2023 Follow Up: Return in about 6 months (around 01/21/2024) for Labs 2-5 Days Before Next Visit. | For:Labs 2-5 Days Before Next Visit If needed, prefers contact by: Ok to leave message on phone: SUBJECTIVE: Nursing Notes: Lin Zhou LPN 07/21/23 1116 Signed Amie Cazares is a 83 year old female who presents today for Chief Complaint Patient presents with Follow Up Pt states that she is here for a 6 month follow up HPI: Amie Cazares is a 83 year old female. Here for recheck. Voices no concerns Reviewed sources 1- Last labs show stable CKD, mildly elev ca, LDL to goal, normal LFT Latest Reference Range & Units 07/10/23 09:28 Triglycerides <=174 mg/dL 233 (H) Cholesterol <200 mg/dL 168 Non-HDL Cholesterol <=159 mg/dL 128 HDL Cholesterol >49 mg/dL 40 (L) LDL Cholesterol (Direct Measure) <=129 mg/dL 78 Sodium 135 - 146 mmol/L 142 Potassium 3.5 - 5.1 mmol/L 4.8 Chloride 98 - 107 mmol/L 104 CO2 22 - 32 mmol/L 25 BUN 6 - 20 mg/dL 21 (H) Creatinine 0.5 - 1.0 mg/dL 1.4 (H) Estimated Glomerular Filtration Rate >=60 mL/min 39 (L) Anion Gap 7 - 15 mmol/L 13 Glucose 70 - 120 mg/dL 112 Calcium 8.4 - 10.2 mg/dL 10.5 (H) Protein 6.0 - 8.3 g/dL 7.1 Albumin 3.8 - 5.0 g/dL 4.7 AST 10 - 35 U/L 25 ALT 10 - 35 U/L 26 Alkaline Phosphatase 35 - 130 U/L 75 Bilirubin, Total <=1.2 mg/dL 0.4 (H): Data is abnormally high (L): Data is abnormally low Patient Active Problem List Diagnosis HTN, goal below 140/90 ADVANCE DIRECTIVE INFORMATION Subjective tinnitus Esophageal reflux DYSLIPIDEMIA, GOAL LDL BELOW 100 Tear film insufficiency Cataract ALLERGIC RHINITIS - MIXED TYPE Postnasal drip Prediabetes Hypertensive kidney disease with stage 3b chronic kidney disease (HCC) S/P total hip arthroplasty Current Outpatient Medications Medication Sig Dispense Refill RESTASIS 0.05 % OP EMUL 1 drop both eyes daily TRAVATAN Z 0.004 % OP SOLN 1 drop both eyes at bedtime Centrum Silver 50+Women Oral Tablet Start: 07/12/19 9:49:00 EDT, 1 tab, PO, Daily Fluticasone Propionate 50 MCG/ACT Nasal Suspension Administer into each nostril 2 Sprays in the morning. 16 g 5 Oxymetazoline HCl 0.05 % Nasal Solution Administer 2 Sprays into nostril in the morning and 2 Sprays before bedtime. Losartan Potassium 50 MG Oral Tablet (Cozaar) Take 1 Tablet by mouth in the morning. 90 Tablet 3 Gemfibrozil 600 MG Oral Tablet (Lopid) Take one tablet daily 90 Tablet 3 Pantoprazole Sodium 20 MG Oral Tablet Delayed Release (Protonix) Take 1 Tablet by mouth in the morning. 90 Tablet 3 Current Facility-Administered Medications Medication Dose Route Frequency Provider Last Rate Last Admin albuterol (PROVENTIL HFA) inhaler 4 Puff 4 Puff Inhalation Q4H PRN Caridad Robleod MD 4 Puff at 11/18/16 0932 OBJECTIVE: BP 130/82 | Pulse 72 | Temp 36.2 C (97.1 F) (Temporal Artery) | Resp 16 | Ht 1.6 m (5' 3") | Wt68.2 kg (150 lb 6.4 oz) | SpO2 97% | BMI 26.64 kg/m | BSA 1.74 m Vitals reviewed and is normotensive / afebrile / and not tachycardic General: No acute distress. Neuro: Alert Pleasant & interactive. Respiratory: Good inspiratory effort, no labored breathing. CTAB CV: RRR no M R G HEENT: Conjunctivae appear clear. No swelling noted face or lips. Skin: No rash visible on exposed skin areas, normal coloration & appears dry. Psych: Normal affect. Fluent speech. Tracy Guadarrama MD [address] [phone] There are no Patient Instructions on file for this visit. documented in this encounter Nursing Notes * Lin Zhou LPN - 07/21/2023 11:13 AM EDT Amie Cazares is a 83 year old female who presents today for Chief Complaint Patient presents with Follow Up Pt states that she is here for a 6 month follow up documented in this encounter Plan of Treatment Upcoming Encounters Date Type Department Care Team (Late st Contact Info) Description 12/08/2023 10:40 AM EDT Office Visit [facility] [address] [place] [place] [address] Tracy Guadarrama MD [address] [address] Scheduled Orders Name Type Priority Associated Diagnoses Orde r Schedule COMPREHENSIVE METABOLIC PANEL Lab Routine Hypertensive kidney disease with stage 3b chronic kidney disease (HCC) Expected: 01/21/2024 (Approximate), Expires: 08/20/2024 PHOSPHORUS Lab Routine Hypertensive kidney disease with stage 3b chronic kidney disease (HCC) Expected: 07/21/2023 (Approximate), Expires: 07/20/2024 HEMOGLOBIN A1C Lab Routine Prediabetes Expected: 01/21/2024 (Approximate), Expires: 08/20/2024 VITAMIN B12 Lab Routine Encounter for long-term (current) use of medications Expected: 01/21/2024 (Approximate), Expires: 08/20/2024 CBC WITH WBC DIFFERENTIAL AND ANEMIA REFLEX WORKUP Lab Routine Hypertensive kidney disease with stage 3b chronic kidney disease (HCC) Encounter for long-term (current) use of medications Expected: 07/21/2023 (Approximate), Expires: 07/20/2024 Health Maintenance Due Date Last Done Comments DTaP,Tdap,and Td Vaccines (2 - Td or Tdap) 10/01/2021 10/02/2011, 03/24/1997 COVID-19 Vaccine ( season) 2022 06/17/2021, 12/29/2020, 05/09/2020, Additional history exists Depression Screening 12/03/2022 12/03/2021 CKD PHOS USE SMARTSET 07998 08/14/2023 06/2 02/2022, 07/16/2021, 07/11/2020, Additional history exists Albumin/Creatinine Ratio 11/27/2023 023, 11/29/2021, 11/05/2017, Additional history exists HbA1c 11/27/2023 11/26/2022, 08/2021, 07/16/2021, Additional history exists CKD HGB USE SMARTSET 62549 01/01/202412/31, 12/31/2022, 08/13/2022, Additional history exists GFR [...] Not on filedocumented as of this encounter Visit Diagnoses Diagnosis Hypertensive kidney disease with stage 3b chronic kidney disease (HCC)- Primary DYSLIPIDEMIA, GOAL LDL BELOW 100 Other and unspecified hyperlipidemia Prediabetes Other abnormal glucose HTN, goal below 140/90 Unspecified essential hypertension Gastroesophageal reflux disease, unspecified whether esophagitis present Encounter for long-term (current) use of medications Encounter for long-term (current) use of other medications documented in this encounter Care Teams Advanced Practice Professional Relationship Specialty Start Date End Date Tracy Guadarrama MD [address] [place] [address] PCP - General Family Medicine 12/03/21 documented as of this encounter
--- OUTSIDE RECORDS SUMMARY | 2023-08-18 10:47 | External Medical Summary | Summary of Care ---
Author Name Unknown Organization [facility] Address [address] [place] [address] Phone [phone] Care Team Providers Care Aerial Gunner Name Role Phone Tracy Guadarrama MD Primary Care Provid er Reason for Visit * Reason Comments Outpatient Testing Encounter Details Date Type Department Care Team (Late st Contact Info) Description 07/10/2023 9:30 AM EDT Laboratory Laboratory, [place] [address] [place] [address] [place] [address] [place] [address] Hypertensive kidney disease with stage 3b chronic kidney disease (HCC); Prediabetes; DYSLIPIDEMIA, GOAL LDL BELOW 100 Allergies Active Allergy Reactions Criticality Noted Date Comments Etodolac Hives 11/29/2001 documented as of this encounter (statuses as of 07/10/2023) Medications Medication Sig Dispensed Refills Start Date End Date Status RESTASIS 0.05 % OP EMUL 1 drop both eyes daily 0 Active TRAVATAN Z 0.004 % OP SOLN 1 drop both eyes at bedtime 0 Active Centrum Silver 50+Women Oral Tablet Start: 07/12/19 9:49:00 EDT, 1 tab, PO, Daily 0 07/12/2019 Active Fluticasone Propionate 50 MCG/ACT Nasal SuspensionIndicatio ns:Post-nasal drip Administer into each nostril 2 Sprays in the morning. 16 g 5 07/29/2021 Active Oxymetazoline HCl 0.05 % Nasal Solution Administer 2 Sprays into nostril in the morning and 2 Sprays before bedtime. 0 Active Losartan Potassium 50 MG Oral Tablet [...] as of this encounter (statuses as of 07/10/2023) Active Problems Problem Noted Date Diagnosed Date [...] as of this encounter (statuses as of 07/10/2023) Resolved Problems Problem Noted Date Diagnosed Date [...] as of this encounter (statuses as of 07/10/2023) Immunizations Name Administration Dates Next Due COVID-19 [...] Description 07/21/2023 11:20 AM EDT Office Visit [facility] [address] [place] [facility] [place] [address] [facility] [address] [facility] [address] Pending Results Name Type Priority Associated Diagnoses Date /Time LIPID PANEL WITH DIRECT LDL IF TG IS HIGH Lab Routine Hypertensive kidney disease with stage 3b chronic kidney disease (HCC) Prediabetes DYSLIPIDEMIA, GOAL LDL BELOW 100 07/10/2023 9:28 AM EDT COMPREHENSIVE METABOLIC PANEL Lab Routine Hypertensive kidney disease with stage 3b chronic kidney disease (HCC) Prediabetes DYSLIPIDEMIA, GOAL LDL BELOW 100 07/10/2023 9:28 AM EDT Health Maintenance Due Date Last Done Comments DTaP,Tdap,and Td Vaccines (2 - Td or Tdap) 10/01/2021 10/02/2011, 03/24/1997 COVID-19 Vaccine ( season) 2022 06/17/2021, 12/29/2020, 05/09/2020, Additional history exists Depression Screening 12/03/2022 12/03/2021 GFR 07/01/2023 12/31/2022, 05/2022, 08/13/2022, Additional history exists CKD PHOS USE SMARTSET 09471 08/14/202307/25, 07/16/2021, 07/11/2020, Additional history exists Albumin/Creatinine Ratio 11/27/2023 023, 11/29/2021, 11/05/2017, Additional history exists HbA1c 11/27/2023 11/26/2022, 100 08/2021, 07/16/2021, Additional history exists CKD HGB USE SMARTSET 32072 01/01/202412/31, 12/31/2022, 08/13/2022, Additional history exists Pneumococcal Vaccine: 65+ Years [...] with stage 3b chronic kidney disease (HCC) Prediabetes Other abnormal glucose DYSLIPIDEMIA, GOAL LDL BELOW 100 Other and unspecified hyperlipidemia documented in this encounter Care Teams Aerial Gunner Relationship Specialty Start Date End Date Tracy Guadarrama MD [address] [place] [address] PCP - General Family Medicine 12/03/21 documented as of this encounter
--- OUTSIDE RECORDS SUMMARY | 2023-08-18 10:47 | External Medical Summary | Summary of Care ---
Author Name Unknown Organization [facility] Address [address] [place] [facility] [place] [facility] [place] [address] Phone [phone] Care Team Providers Care Health Care Social Worker Name Role Phone Tracy Guadarrama MD Primary Care Provid er Reason for Visit * Reason Onset Date Comments Advice 12/30/2022 Sick Encounter Details Date Type Department Care Team (Late st Contact Info) Description 12/30/2022 Telephone [facility] [address] [place] [address] Tracy Guadarrama MD [address] [place] [address] Advice (Sick ) Allergies Active Allergy Reactions Criticality Noted Date Comments Etodolac Hives 11/29/2001 documented as of this encounter (statuses as of 03/31/2023) Medications Medication Sig Dispensed Refills Start Date [...] as of this encounter (statuses as of 03/31/2023) Active Problems Problem Noted Date Diagnosed Date [...] as of this encounter (statuses as of 03/31/2023) Resolved Problems Problem Noted Date Diagnosed Date [...] as of this encounter (statuses as of 03/31/2023) Immunizations Name Administration Dates Next Due COVID-19 [...] Date Smoking Tobacco: Former Cigarettes 1 5 Q uit: 02/[birth year]/1969 Passive Smoke Exposure: Past Smokeless Tobacco: [...] on file documented as of this encounter Miscellaneous Notes * Telephone Encounter - Sergio Dai MD - 12/30/2022 5:19 PM EST Noted. Will follow up in office tomorrow. Push fluids. Sergio Dai MD * Telephone Encounter - Fina Godfrey LPN - 12/30/2022 2:49 PM EST Patient calling. Started night. In the middle of the night. Got up to go to the bathroom. She got dizzy. Slid herself down. Hit her head. Has a small lump on the back right of her head. Embarrassed herself more than anything. She was nauseated and had dry heaves. Did have a couple mouthfuls of yellow liquid. Just enough to put in a tissue. Got up Thursday. Was better, but not a 100 percent. She was lightheaded and cold. Body aches. Thursday night got dinner, but felt off. Still lightheaded. Still cold. Temperature normal. Not sick enough to go to ER. Thursday she said maybe she had a touch of the flu. Took coricidin HBP. Still didn't feel sick enough to go to the Hospital. Thursday her next door neighbor took her blood pressure and it was low. 116/60. Standing 106/60 when standing. She is not much of a drinker. Her son made her drink water. No nausea, vomiting or diarrhea. Took acovid test and it was negative. Appointment made for tomorrow at 1:[address] Dai. * Telephone Encounter - Angella Felton OSA - 12/30/2022 2:36 PM EST Pt calling to speak with a nurse, she is sick and would like to get advice on what to do and how totreat symptoms. Pt stated she "feels like a MAC truck ran over me." Pt stated that she had an episode that she got dizzy and fell the other day and hit her head, elbow, and butt cheeks. She then got the chills really bad and shook so bad with being cold but also saidher heart was pulsating. These feel like possible flu symptoms but she isn't sure how to treat or what this is. Transferred to [facility] nurse line. documented in this encounter Plan of Treatment Upcoming Encounters Date Type Department Care Team (Late st Contact Info) Description 07/10/2023 9:30 AM EDT Laboratory Laboratory, [place] [address] [facility] [place] [id number] [place] [address] [facility] [address] 07/13/2023 9:40 AM EDT Office Visit [facility] [place] [address] [facility] [id number] [facility]ama MD [address] [facility] [address] Health Maintenance Due Date Last Done Comments DTaP,Tdap,and Td Vaccines (2 - Td or Tdap) 10/01/2021 10/02/2011, 03/24/1997 COVID-19 Vaccine (2022- season) 2022 06/17/2021, 12/29/2020, 05/09/2020, Additional history exists Depression Screening 12/03/2022 12/03/2021 GFR 07/01/2023 12/31/2022, 05/2022, 08/13/2022, Additional history exists CKD PHOS USE SMARTSET 47147 08/14/202307/25, 07/16/2021, 07/11/2020, Additional history exists Albumin/Creatinine Ratio 11/27/2023 023, 11/29/2021, 11/05/2017, Additional history exists HbA1c 11/27/2023 11/26/2022, 08/2021, 07/16/2021, Additional history exists CKD HGB USE SMARTSET 30289 01/01/202412/31, 12/31/2022, 08/13/2022, Additional history exists Pneumococcal [...] filedocumented as of this encounter Care Teams Health Care Social Worker Relationship Specialty Start Date End Date Tracy Guadarrama MD [address] [place] [address] PCP - General Family Medicine 12/03/21 documented as of this encounter
[2023-08-18 10:51] LABS: Appearance Urine Turbid (Clear); Bacteria Urine Automated None Seen (None Seen); Bilirubin Urine Negative (Negative); Blood Urine Negative (Negative); Cast Urine Automated 0-2 /lpf (0-2); Color Urine Yellow; Glucose Urine UA Negative (Negative); Ketones Urine Trace (Negative); Leukocyte Esterase Urine Negative (Negative); Nitrite Urine Negative (Negative); Protein Urine 2+ (Negative); RBC Urine Automated 0-2 /hpf (0-2); Specific Gravity Urine 1.018 (1.000-1.030); Urobilinogen Urine Negative (Negative); WBC Urine Automated 0-5 /hpf (0-5); pH Urine 7.5 (4.5-7.5)
--- NOTE | 2023-08-18 10:57 | Electrocardiogram Report ---
Test Reason : Blood Pressure : / mmHG Vent. Rate : 081 BPM Atrial Rate : 081 BPM P-R Int : 168 ms QRS Dur : 084 ms QT Int : 412 ms P-R-T Axes : 015 -18 074 degrees QTc Int : 478 ms Sinus rhythm with Premature atrial complexes Left ventricular hypertrophy with repolarization abnormality ( R in aVL ) Abnormal ECG No previous ECGs available Confirmed by Sam Baez ([id number]) on 08/18/2023 10:57:13 AM Referred By: Confirmed By:Sam Baez
--- NOTE | 2023-08-18 11:04 | CT Scan Report ---
CT OF THE ABDOMEN AND PELVIS WITH CONTRAST CLINICAL HISTORY: Nausea and vomiting. Right-sided abdominal pain. COMPARISON STUDY: None. TECHNIQUE: Following IV administration of 93 mL of Optiray, axial images of the abdomen and pelvis we re obtained from the lung bases to the proximal femurs. Images were reviewed in the axial, sagittal, and coronal planes. IV contrast was administered without complication. Automated exposure control wa s utilized for the study. A dose lowering technique was utilized adhering to the principles of ALARA . CT DOSE: 903.43 mGy.cm FINDINGS: Lung bases are unremarkable. No pneumatosis, free air or portal venous gas is present. Subc entimeter right hepatic lobe lesion represents a cyst. The common bile duct measures 1 cm in caliber following cholecystectomy. There is mild wall thickening of the common bile duct. A few small periphe ral enhancing foci of overlying the right hepatic lobe measure up to 7 mm. The spleen and adrenal gla nds are unremarkable. There are several renal cysts. There is no hydronephrosis. Moderate peripancrea tic fluid extends into the mesentery. There are no peripancreatic fluid collections. Pancreas is slig htly edematous. There is mild dilatation of the pancreatic duct, measuring 5 mm in caliber. Pancreas divisum is present. No evidence for gland necrosis. No evidence for a bowel obstruction. A small amou nt of fluid within the pelvis is noted. There is extensive sigmoid diverticulosis without evidence fo r acute diverticulitis. Left hip arthroplasty is intact. Umbilical hernia repair with mesh. IMPRESSION: 1. Findings consistent with acute pancreatitis. Peripancreatic fluid extending into the mesentery. No peripancreatic fluid collections. No evidence for gland necrosis. Pancreas divisum. Mild dilatation of the pancreatic duct. 2. Mild biliary ductal dilatation status post cholecystectomy and mild wall thickening of common bile duct. Correlation with liver function tests is recommended. 3. A few subcentimeter peripheral enhancing foci overlying the right hepatic lobe. These are nonspeci fic but may reflect small dropped gallstones. 4. Small amount of fluid within the pelvis. 5. Extensive sigmoid diverticulosis. No evidence for acute diverticulitis. ACT 112: Negative or not required by law. Electronically signed by: Mansoor Mathews M.D. 08/18/2023 11:02 AM
--- NOTE | 2023-08-18 12:09 | History & Physical Report ---
Date of Service August 18, 2023 Assessment & Plan (1) Acute pancreatitis: Plan Amie Cazares is an 83y/o F with PMHx of dyslipidemia, HTN, prediabetes, allergic rhinitis, GERD, CKD stage III and other problems listed below who presented to the ED for evaluation of N/V, abdominal pain x 2 days and was found to have acute pancreatitis. Acute Pancreatitis Admitting Imaging: * CTAP --> "Findings consistent with acute pancreatitis. Peripancreatic fluid extending into the mesentery. No peripancreatic fluid collections. No evidence for gland necrosis. Pancreas divisum. Mild dilatation of the pancreatic duct. Mild biliary ductal dilatation status post cholecystectomy and mild wall thickening of common bile duct. A few subcentimeter peripheral enhancing foci overlying the right hepatic lobe. These are nonspecific but may reflect small dropped gallstones. Small amount of fluid within the pelvis. Extensive sigmoid diverticulosis. No evidence for acute diverticulitis." Admitting Labs: * Lipase elevated @ 1538 * LFTs w/in normal range * Leukocytosis, WBC 12.33 * UA negative * Trop 34.2 -> 31.3 ED provider spoke with GI. Biliary duct dilatation more than likely from prior cholecystectomy, less concern for CBD stone at this time. Recommend to correlate with MRCP. Patient received 1.5L NSS, 4mg IV Zofran in the ED. 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 Armstrong. Please see addendum. I spent a total of 75 minutes coordinating, documenting, and providing care for this patient excluding time spent in the performance of separately billed services. This included personally reviewing all current laboratories and imaging studies, medical reconciliation, outpatient chart review and discussion with specialists. This chart was completed in part utilizing Speech Voice Recognition Software. Grammatical errors, random word insertions, pronoun errors, and incomplete sentences are an occasional consequence of this system due to software limitations, ambient noise, and hardware issues. Any formal questions or concerns about the content, text, or information contained within the body of this dictation should be directly addressed to the provider for clarification. History of Present Illness Chief Complaint: N/V and Abdominal Pain x 2 days Primary Care Provider: Tracy Guadarrama MD Amie Cazares is an 83y/o F with PMHx of hyperlipidemia, HTN, prediabetes, allergic rhinitis, GERD, CKD stage III, osteoarthritis, hx of cholecystectomy, hx of appendectomy and other problems listed below who presented to the ED for evaluation of N/V, abdominal pain x 2 days. History obtained from patient, (De) at bedside and associated chart review. Patient seen at bedside with Dr. Armstrong. Patient reports that she has been experiencing intermittent nausea and vomiting, abdominal pain for the past 2 days. States her last full meal was Thursday night; has not been able to tolerate food intake since then. States she has been trying to hydrate appropriately. She did take her prescription medications this morning. She had a bowel movement yesterday. States her last "regular" bowel movement was Thursday night. She did pass gas this morning. No blood in her bowels or vomit, denies any fevers. States she did become sweaty during her episodes of vomiting. The abdominal pain is more localized to her epigastric region, but does radiate around her right upper abdominal region to the middle of her back. Mentions she is very tender to palpation in that region. She cannot really tolerate even touching her upper abdomen. She has not taken any pain medications at home. Reports 10/10 pain at its worst. Patient mentions she had an episode like this approximately 3 weeks ago. That episode lasted about 4 days and resolved without any medical inte rvention. At that time, she felt she was having an episode of food poisoning. She decided to come to the ED today due to no improvement in her pain. She has not had an episode of vomiting since yesterday afternoon. Patient endorses having 1 glass of wine daily, but has not consumed any alcoholic beverages in the past 3 weeks. Allergies Allergy/AdvReac Type Severity Reaction Status Date / Time No Known Drug Allergies Allergy 0 Verified 08/18/23 11:37 nickel AdvReac Intermediate SKIN Verified 08/18/23 11:37 IRRITATION Home Medications Medication Instructions Recorded Confirmed Type cholecalciferol (vitamin D3) 25 25 mcg PO DAILY 07/21/19 08/18/23 History mcg (1,000 unit) tablet (Vitamin D3) cyanocobalamin (vitamin B-12) 1,000 mcg PO DAILY 07/21/19 08/18/23 History 1,000 mcg tablet (Vitamin B-12) cyclosporine 0.05 % eye drops in a 1 drp ophthalmic (eye) Q12H 07/21/19 08/18/23 History dropperette (Restasis) diphenhydramine 25 1 tab PO HS PRN Pain 07/21/19 08/18/23 History mg-acetaminophen 500 mg tablet (Tylenol PM Extra Strength) docusate sodium 100 mg capsule 200 mg PO QAM 07/21/19 08/18/23 History (Stool Softener) gemfibrozil 600 mg tablet 600 mg PO QAM 07/21/19 08/18/23 History losartan 100 1 tab PO QAM 07/21/19 08/18/23 History mg-hydrochlorothiazide 25 mg tablet dudwvjla-abqe-zvsc 8 mg-folic 400 1 tab PO DAILY 07/21/19 08/18/23 History mcg-K 50 mcg-lutein 300 mcg tablet (Centrum Silver Women) pantoprazole 20 mg tablet,delayed 20 mg PO QAM 07/21/19 08/18/23 History release potassium gluconate 595 mg (99 mg) 595 mg PO DAILY 07/21/19 08/18/23 History tablet travoprost 0.004 % eye drops 1 drp ophthalmic (eye) PM 07/21/19 08/18/23 History (Travatan Z) tramadol 50 mg tablet 50 mg PO Q6H PRN pain #30 tabs 07/29/19 08/18/23 Rx losartan 50 mg tablet 50 mg PO DAILY 08/18/23 08/18/23 History naproxen sodium 220 mg tablet 440 mg PO Q12H PRN Pain 08/18/23 08/18/23 History (Aleve) Past Med/Surg History Problem List Acute pancreatitis (Acute) Acute pancreatitis S/P total hip arthroplasty Encounter for pre-operative examination Osteoarthritis of left hip Medical History Hip pain GROIN INTO THE KNEE PAIN BELIVED TO BE RELATED TO THE HIP AREA Chronic back pain Osteoarthritis GERD (gastroesophageal reflux disease) Anxiety Hyperlipidemia Hypertension Glaucoma TREATED FOR HIGH PRESSURE History of tachycardia R/T ANXIETY Surgical History S/P epidural steroid injection S/P OZIEL-BSO Hx of umbilical hernia repair History of cholecystectomy History of appendectomy History of colonoscopy History of section History of cataract surgery BILATERAL Family History Mother FHx: glaucoma Other No family history of adverse response to anesthesia Social History Smoking Status: Never smoker Second Hand Exposure: Yes (HX); Do You Dip or Chew Tobacco: No; Hx Alcohol Use: Yes Alcohol type: wine Hx Substance Use: No Preferred Language: Irish Communication Ability: Effective 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 Physical Exam Physical Exam: Please refer to Dr. Armstrong's addendum for physical examination findings. Results & Data Results & Data Vital Signs (Past 12 Hours) Vital Signs Temp Pulse Pulse Resp BP BP Pulse Ox 08/18/23 11:00 82 17 149/80 H 95 08/18/23 09:36 82 08/18/23 09:19 82 16 138/84 94 08/18/23 08:44 36.8 C 18 L 18 115/63 85 L O2 Del Method 08/18/23 11:00 Room Air 08/18/23 09:36 08/18/23 09:19 Room Air 08/18/23 08:44 Room Air Laboratory Results Short CBC 08/18/23 Range/Units 09:16 WBC 12.33 H (4.8-10.8) K/ul Hgb 14.0 (12.0-16.0) g/dl Hct 41.8 (37.0-47.0) % Plt Count 163 (130-400) K/uL BMP 08/18/23 09:16 Sodium 139 Potassium 3.6 Chloride 101 Carbon Dioxide 27 BUN 24 H Creatinine 1.26 H Glucose 144 H Calcium 9.9 Liver Function 08/18/23 Range/Units 09:16 Total Bilirubin 0.9 (0.2-1.0) mg/dl AST 17 (13-39) U/L ALT 13 (7-52) U/L Alkaline Phosphatase 81 (34-104) U/L Albumin 4.5 (3.4-5.0) gm/dl Urine 08/18/23 Range/Units 09:16 Urine Color Yellow Urine Appearance Turbid A (Clear) Urine pH 7.5 (4.5-7.5) Ur Specific [place] 1.018 (1.000-1.030) Urine Protein 2+ H (Negative) Urine Glucose (UA) Negative (Negative) Diagnostic Findings Abdomen/Pelvis CT 08/18/23 09:14 CT OF THE ABDOMEN AND PELVIS WITH CONTRAST CLINICAL HISTORY: Nausea and vomiting. Right-sided abdominal pain. COMPARISON STUDY: None. TECHNIQUE: Following IV administration of 93 mL of Optiray, axial images of the abdomen and pelvis were obtained from the lung bases to the proximal femurs. Images were reviewed in the axial, sagittal, and coronal planes. IV contrast was administered without complication. Automated exposure control was utilized for the study. A dose lowering technique was utilized adhering to the principles of ALARA. CT DOSE: 903.43 mGy.cm FINDINGS: Lung bases are unremarkable. No pneumatosis, free air or portal venous gas is present. Subcentimeter right hepatic lobe lesion represents a cyst. The common bile duct measures 1 cm in caliber following cholecystectomy. There is mild wall thickening of the common bile duct. A few small peripheral enhancing foci of overlying the right hepatic lobe measure up to 7 mm. The spleen and ad renal glands are unremarkable. There are several renal cysts. There is no hydronephrosis. Moderate peripancreatic fluid extends into the mesentery. There are no peripancreatic fluid collections. Pancreas is slightly edematous. There is mild dilatation of the pancreatic duct, measuring 5 mm in caliber. Pancreas divisum is present. No evidence for gland necrosis. No evidence for a bowel obstruction. A small amount of fluid within the pelvis is noted. There is extensive sigmoid diverticulosis without evidence for acute diverticulitis. Left hip arthroplasty is intact. Umbilical hernia repair with mesh. IMPRESSION: 1. Findings consistent with acute pancreatitis. Peripancreatic fluid extending into the mesentery. No peripancreatic fluid collections. No evidence for gland necrosis. Pancreas divisum. Mild dilatation of the pancreatic duct. 2. Mild biliary ductal dilatation status post cholecystectomy and mild wall thickening of common bile duct. Correlation with liver function tests is recommended. 3. A few subcentimeter peripheral enhancing foci overlying the right hepatic lobe. These are nonspecific but may reflect small dropped gallstones. 4. Small amount of fluid within the pelvis. 5. Extensive sigmoid diverticulosis. No evidence for acute diverticulitis. ACT 112: Negative or not required by law. Electronically signed by: Mansoor Mathews M.D. 08/18/2023 11:02 AM Medications Administered Discontinued Medications Sodium Chloride (Nss) 1,000 mls @ 999 mls/hr IV .Q1H1M STA Stop: 08/18/23 09:58 Last Infusion: 08/18/23 10:19 Dose: Infused Documented By: Admin: 08/18/23 09:18 Dose: 999 mls/hr Documented By: SHILPA Sodium Chloride (Nss) 500 mls @ 999 mls/hr IV .Q31M ONE Stop: 08/18/23 09:37 Last Infusion: 08/18/23 10:19 Dose: Infused Documented By: Admin: 08/18/23 09:29 Dose: 999 mls/hr Documented By: SHILPA Ioversol (Optiray 320 100ml) 93 ml IV ONCE ONE Stop: 08/18/23 10:31 Last Admin: 08/18/23 10:31 Dose: 93 ml Documented By: KASIE Ondansetron HCl (Ondansetron Inj 2 Mg/Ml 2 Ml Vial) 4 mg IV NOW STA Stop: 08/18/23 09:08 Last Admin: 08/18/23 09:21 Dose: 4 mg Documented By: SHILPA ECG Additional Comments: EKG displays sinus rhythm with premature atrial complexes, HR 81bpm, LVH with repolarization abnormality, and QTc Interval 47ms. Code Status & VTE Plan Code Status FULL CODE VTE Prophylaxis Plan VTE Prophylaxis will be ordered: Yes Supervising Physician Co-Signing Physician Notes Patient was seen and examined at bedside with Marlena KINNEY. Chart reviewed. Case discussed with Marlena KINNEY and agree with the documentation above. In summary, this is a 83 year old female with h/o cholecystectomy, h/o wine use last week 3 weeks back who presented to the ED with N/V/abd pain for 2 days and found to have acute pancreatitis. Had similar episodes 3 weeks back which resolved on its own at home over few days. ED physician spoke with GI who would see the patient in consult and agreed with inpatient MRCP but concern for CBD stone is less as h/o cholecystectomy, normal LFTs; and dilated CBD is most likely due to post cholecystectomy status. Still with abd pain but better than initial presentation. Passed some gas. Vitals stable. LFTs normal, Lipase 1500, WBC 12 likely reactive, hematocrit normal, calcium normal, Cr 1.3 at baseline. BISAP score of 1 because of age. On exam, sitting comfortably in bed, AAOx3, chest clear, heart sounds normal, abd tender on epigastrium/right side, no LE edema, neurologically grossly intact. Will admit for management of acute pancreatitis ?etiology. Will continue npo status, bowel rest, ivf, analgesics prn, antiemetics prn. Check CBC, CMP, lipase, CRP, lipid profile in am. Follow up on pending MRCP and GI eval. Trial of sips and clears likely tomorrow depending on clinical improvement. Rest as per the note above. (1) Acute pancreatitis Acute pancreatitis complication: unspecified Pancreatitis type: unspecified pancreatitis type Qualified Code(s): K85.90 - Acute pancreatitis without necrosis or infection, unspecified
[2023-08-18] MEDS: SODIUM CHLORIDE 0.9% 1,000 ML IV SCH (12:45)
--- NOTE | 2023-08-18 14:12 | Magnetic Resonance Report ---
MR MRCP CLINICAL HISTORY: acute pancreatitis w dilated CBD r/o CBD stones TECHNIQUE: Multiplanar multisequence MR images of the abdomen were obtained, as per MRCP protocol. . COMPARISON: Comparison is made to CT abdomen pelvis 08/18/2023 FINDINGS: Lower chest: Bibasilar atelectasis versus scarring is seen. Liver: Unremarkable. No focal lesions are seen. Gallbladder and biliary tree: Patient is status post cholecystectomy. Bile ducts are prominent measur ing up to 11 mm in diameter. No filling defects are seen. Pancreatic duct is also without stones, how ever it appears mildly prominent and deviated measuring up to 5 mm in diameter in the body of the pyle creas.. Pancreas: Peripancreatic fat stranding is again seen. No well-defined fluid collections are seen. Spleen: Unremarkable. Adrenals: Unremarkable. Kidneys and ureters: Perinephric stranding is noted bilaterally. Bilateral renal cysts are seen. Bowel: Unremarkable. Lymph nodes Retroperitoneal: Unremarkable. Mesenteric: Unremarkable. Peritoneum: Normal Vessels: Unremarkable. Abdominal wall: Unremarkable. Bones: Unremarkable. IMPRESSION: 1. No evidence of choledocholithiasis. Prominence of the common bile duct may be physiologic. 2. Redemonstration of findings of pancreatitis. 3. Additional findings as above. ACT 112: Negative or not required by law. Electronically signed by: Iftikhar Victoria M.D. 08/18/2023 2:10 PM
[2023-08-18] MEDS ORDERED: ALUMINUM/MAGNESIUM SUSP 30 ML UDC PO PRN (14:29)
[2023-08-18] MEDS ORDERED: ONDANSETRON INJ 2 MG/ML 2 ML VIAL IV PRN (14:29)
[2023-08-18] MEDS ORDERED: HYDROmorphone INJ 0.5 MG/0.5 ML SYR IV PRN (14:29)
--- NOTE | 2023-08-18 15:08 | Gastrointestinal Consultation ---
Date of Consultation August 18, 2023 Assessment & Plan (1) Acute pancreatitis: 83 year old female s/p CCY about 15 years ago who reports upper abd pain, nausea/vomiting about 3 weeks ago, self-limiting, w/ return of symptoms now, more severe pain w/ persistent nausea/vomiting prompting ED evaluation. CT and MR concerning for acute pancreatitis. There is report of biliary prominence with CBD 11mm but no report of filling defect, pancreatic ductal dilation at 5mm and report of a pancreas divisum Treat the pancreatitis conservatively NPO for bowel rest, once pain improves, start with clear liquids and advance to low fat as tolerated LR 150 mL/hr Watch for adequate hydration, 2 pt drop in HGB Trend glucose, LINE FISHER Antiemetics PRN Analgesia PRN Encouraged early ambulation, OOB to chair etc Start Miralax 1 capful daily Recommend OP EUS in about 4 weeks time, please help arrange with the health system of her choice Thank you for allowing us to participate in the care of this patient. Please call with any acute changes, questions or concerns. Please see addendum below with additional recommendation from my supervising physician. I spent a total of 60 minutes on the date of service in review of patient's record, and previously obtained information in person and appropriate medical visit, discussion and education of plan, with patient and/or caregiver, placing orders for tests/referral/procedures as medically necessary and documentation of pertinent clinical information in patient's medical records for their visit today. Supervising Physician Co-Signing Physician Notes I examined the patient and reviewed patient's chart , laboratory data and imaging studies. I agree with with assessment and plan of care as suggested by advanced practice provider. Acute pancreatitis. Etiology unclear, no evidence of choledocholithiasis. No significant alcohol consumption. The patient does have pancreas divisum on MRI/MRCP. Overall pancreatitis appears to be mild. Continue IV hydration. Advance diet as tolerated. Continue supportive care. Follow-up as an outpatient for possible EUS in several weeks. History of Present Illness Reason for Consultation: pancreatitis Requesting Physician: Patti Attending Physician: Jameson Armstrong MD History of Present Illness 83 year old female with history of hyperlipidemia, HTN, prediabetes, allergic rhinitis, GERD, CKD-III, osteoarthritis, hx of cholecystectomy, hx of appendectomy and others below admitted through the ED w/ pancreatitis. GI asked to evaluate. Pt was seen and evaluated, chart reviewed. No family present at time of my consultation in the ED. She notes that about 3 weeks ago she acutely developed upper abd pain w/ nausea/vomiting. She suspected this was food poisoning, was self-limiting and notes she improved in about 48 hours. Returned to her typical state of health until Thursday when symptoms returned. Abrupt onset upper abdominal pain which radiated to her RUQ and through to her back. This was again associated with severe nausea/vomiting. No report of black or bloody emesis. She notes associated constipation with this, suggesting last BM was about 3 days ago. She does report feeling sweaty but denies fevers at home. Denies any weight loss. No fever, chils, CP, SOB. She takes Aleve 2 tablets 2-3 times a week She notes daily intake of wine with daily, maybe one glass No tobacco No street drugs She uses a daily multivitamin Vit-D and B12. Denies any new medications No recent antibiotics Tbili 0.9 AST 17 ALT 13 ALKP 81 Lipase 1,538 MRCP 2023: No evidence of choledocholithiasis. Prominence of the common bile duct may be physiologic. Redemonstration of findings of pancreatitis. Additional findings as above. CTAP 2023: . Findings consistent with acute pancreatitis. Peripancreatic fluid extending into the mesentery. No peripancreatic fluid collections. No evidence for gland necrosis. Pancreas divisum. Mild dilatation of the pancreatic duct.. Mild biliary ductal dilatation status post cholecystectomy and mild wall thickening of common bile duct. Correlation with liver function tests is recommended.. A few subcentimeter peripheral enhancing foci overlying the right hepatic lobe. These are nonspecific but may reflect small dropped gallstones. Small amount of fluid within the pelvis. Extensive sigmoid diverticulosis. No evidence for acute diverticulitis. Allergies Allergy/AdvReac Type Severity Reaction Status Date / Time No Known Drug Allergies Allergy 0 Verified 08/18/23 11:37 nickel AdvReac Intermediate SKIN Verified 08/18/23 11:37 IRRITATION Home Medications Medication Instructions Recorded Confirmed Type cholecalciferol (vitamin D3) 25 25 mcg PO DAILY 07/21/19 08/18/23 History mcg (1,000 unit) tablet (Vitamin D3) cyanocobalamin (vitamin B-12) 1,000 mcg PO DAILY 07/21/19 08/18/23 History 1,000 mcg tablet (Vitamin B-12) cyclosporine 0.05 % eye drops in a 1 drp ophthalmic (eye) Q12H 07/21/19 08/18/23 History dropperette (Restasis) diphenhydramine 25 1 tab PO HS PRN Pain 07/21/19 08/18/23 History mg-acetaminophen 500 mg tablet (Tylenol PM Extra Strength) docusate sodium 100 mg capsule 200 mg PO QAM 07/21/19 08/18/23 History (Stool Softener) gemfibrozil 600 mg tablet 600 mg PO QAM 07/21/19 08/18/23 History losartan 100 1 tab PO QAM 07/21/19 08/18/23 History mg-hydrochlorothiazide 25 mg tablet yaevslym-opgu-iipp 8 mg-folic 400 1 tab PO DAILY 07/21/19 08/18/23 History mcg-K 50 mcg-lutein 300 mcg tablet (Centrum Silver Women) pantoprazole 20 mg tablet,delayed 20 mg PO QAM 07/21/19 08/18/23 History release potassium gluconate 595 mg (99 mg) 595 mg PO DAILY 07/21/19 08/18/23 History tablet travoprost 0.004 % eye drops 1 drp ophthalmic (eye) PM 07/21/19 08/18/23 History (Travatan Z) tramadol 50 mg tablet 50 mg PO Q6H PRN pain #30 tabs 07/29/19 08/18/23 Rx losartan 50 mg tablet 50 mg PO DAILY 08/18/23 08/18/23 History naproxen sodium 220 mg tablet 440 mg PO Q12H PRN Pain 08/18/23 08/18/23 History (Aleve) Patient History Medical History Hip pain GROIN INTO THE KNEE PAIN BELIVED TO BE RELATED TO THE HIP AREA Chronic back pain Osteoarthritis GERD (gastroesophageal reflux disease) Anxiety Hyperlipidemia Hypertension Glaucoma TREATED FOR HIGH PRESSURE History of tachycardia R/T ANXIETY Surgical History S/P epidural steroid injection S/P OZIEL-BSO Hx of umbilical hernia repair History of cholecystectomy History of appendectomy History of colonoscopy History of section History of cataract surgery BILATERAL Family History Mother FHx: glaucoma Other No family history of adverse response to anesthesia Social History Smoking Status: Never smoker Second Hand Exposure: Yes (HX); Do You Dip or Chew Tobacco: No; Hx Alcohol Use: Yes Alcohol type: wine Hx Substance Use: No Preferred Language: Gambian Communication Ability: Effective House Registry Rn Required: No Beliefs That Will Affect Care: None marital status: Current Living Situation: Spouse Feels Safe at Home: Yes Assistive Devices: Glasses and Walker Review of Systems Review of Systems: All other findings negative except as noted in HPI. Physical Exam Constitutional: WD/WN, vitals as above Respiratory: normal respiratory effort, lungs clear to auscultation Cardiovascular: Rate/Rhythm: regular rate and regular rhythm Gastrointestinal (Abdomen): Inspection/Auscultation: normal bowel sounds Percussion/Palpation: + abdomen tender (pain w/ palpation of epigastric and RUQ area) and abdomen soft; no guarding and abdomen not rigid Skin: no rashes, warm and dry Results & Data Vital Signs (Past 12 Hours) Vital Signs Temp Pulse Pulse Resp BP BP Pulse Ox 08/18/23 14:00 18 134/96 95 08/18/23 11:00 82 17 149/80 H 95 08/18/23 09:36 82 08/18/23 09:19 82 16 138/84 94 08/18/23 08:44 36.8 C 18 L 18 115/63 85 L O2 Del Method 08/18/23 14:00 Room Air 08/18/23 11:00 Room Air 08/18/23 09:36 08/18/23 09:19 Room Air 08/18/23 08:44 Room Air Laboratory Results 08/18/23 08/18/23 Range/Units 11:57 09:16 WBC 12.33 H (4.8-10.8) K/ul RBC 4.69 (4.20-5.40) M/uL Hgb 14.0 (12.0-16.0) g/dl Hct 41.8 (37.0-47.0) % MCV 89.1 (80.0-100.0) fL MCH 29.9 (25.0-34.0) pg MCHC 33.5 (32.0-36.0) g/dL RDW Std Deviation 42.0 (36.4-46.3) fL RDW Coeff of Josh 12.9 (11.5-14.5) % Plt Count 163 (130-400) K/uL MPV 12.6 H (9.4-12.4) fL Immature Gran % (Auto) 0.3 % Neut % (Auto) 80.5 % Lymph % (Auto) 9.7 % [place] % (Auto) 7.1 % Eos % (Auto) 2.2 % Baso % (Auto) 0.2 % Neut # (Auto) 9.94 H (1.40-6.50) K/uL Lymph # (Auto) 1.19 L (1.20-3.40) K/uL [place] # (Auto) 0.87 H (0.11-0.59) K/uL Eos # (Auto) 0.27 (0.00-0.50) K/uL Baso # (Auto) 0.02 (0.00-0.20) K/uL Immature Gran # (Auto) 0.04 (0.01-0.20) K/uL PT 11.8 (9.0-12.0) Seconds INR 1.1 (0.9-1.1) Sodium 139 (136-145) mmol/L Potassium 3.6 (3.5-5.1) mmol/L Chloride 101 (98-107) mmol/L Carbon Dioxide 27 (21-32) mmol/L Anion Gap 11 (3-11) BUN 24 H (6-23) mg/dl Creatinine 1.26 H (0.6-1.2) mg/dl Est Cr Clr Drug Dosing 32.2 ml/min Est GFR ( Amer) 45.9 ml/min Est GFR (Non-Af Amer) 39.6 ml/min BUN/Creatinine Ratio 19.0 (10-20) Glucose 144 H (70-99(Fasting)) mg/dl Calcium 9.9 (8.6-10.3) mg/dl Total Bilirubin 0.9 (0.2-1.0) mg/dl AST 17 (13-39) U/L ALT 13 (7-52) U/L Alkaline Phosphatase 81 (34-104) U/L Troponin I High Sens 31.3 H 34.2 H (0-14) pg/ml Total Protein 7.5 (6.0-8.3) gm/dl Albumin 4.5 (3.4-5.0) gm/dl Globulin 3.0 (2.5-4.0) gm/dl Albumin/Globulin Ratio 1.5 (0.9-2) Lipase 1538 H (11-82) U/L Urine Color Yellow Urine Appearance Turbid A (Clear) Urine pH 7.5 (4.5-7.5) Ur Specific [place] 1.018 (1.000-1.030) Urine Protein 2+ H (Negative) Urine Glucose (UA) Negative (Negative) Urine Ketones Trace H (Negative) Urine Blood Negative (Negative) Urine Nitrite Negative (Negative) Urine Bilirubin Negative (Negative) Urine Urobilinogen Negative (Negative) Ur Leukocyte Esterase Negative (Negative) Urine WBC (Auto) 0-5 (0-5) /hpf Urine RBC (Auto) 0-2 (0-2) /hpf U Hyaline Cast (Auto) 0-2 (0-2) /lpf U Epithel Cells (Auto) 3-5 H (0-2) /hpf Urine Bacteria (Auto) None Seen (None Seen) PG Care Time/CCT Total # of Minutes Spent Total Time Spent with Patient: Total time spent is greater than 50% in coordination of care (as documented) at patient's floor/unit and/or counseling patient: Coding Level of Care Code 34872 INT INP/OBS CARE 2/55MIN Diagnoses Acute pancreatitis K85.90 Acute pancreatitis complication: unspecified Pancreatitis type: unspecified pancreatitis type (1) Acute pancreatitis Acute pancreatitis complication: unspecified Pancreatitis type: unspecified pancreatitis type Qualified Code(s): K85.90 - Acute pancreatitis without necrosis or infection, unspecified
[2023-08-18] MEDS: LACTATED RINGER'S 1,000 ML IV SCH (15:29)
[2023-08-18] MEDS ORDERED: ARTIFICIAL TEARS OP PRN (17:06)
[2023-08-18] MEDS: traMADol HCL 50 MG TABLET PO PRN (18:52)
[2023-08-18] MEDS: TRAVOPROST Z 0.004% OPH SOLN 2.5 ML BTL OP SCH (20:08)
[2023-08-18] MEDS: HEPARIN SOD 5,000 UNIT/0.5 ML VIAL SQ SCH (20:08)
--- OUTSIDE RECORDS SUMMARY | 2023-08-19 02:28 | External Medical Summary | Summary of Care ---
Author Name Unknown Organization [facility] Address [address] [place] [address] Phone [phone] Care Team Providers Care Oil House Attendant Name Role Phone Tracy Guadarrama MD Primary Care Provid er Encounter Details Date Type Department Care Team (Late st Contact Info) Description 08/18/2023 Telephone [facility] [address] [place] [address] Tracy Guadarrama MD [address] [place] [address] Allergies Active Allergy Reactions Criticality Noted Date Comments Etodolac Hives 11/29/2001 documented as of this encounter (statuses as of 08/18/2023) Medications Medication Sig Dispensed Refills Start Date [...] as of this encounter (statuses as of 08/18/2023) Active Problems Problem Noted Date Diagnosed Date [...] as of this encounter (statuses as of 08/18/2023) Resolved Problems Problem Noted Date Diagnosed Date [...] as of this encounter (statuses as of 08/18/2023) Immunizations Name Administration Dates Next Due COVID-19 [...] money to get more. Never true 12/01/2022 Childcare Answer Date Recorded Do you feel overwhelmed with taking care of a child, family member or friend? No 12/01/2022 Does your family need help f inding childcare? (Household - for ages 0-17 years) Not on file 12/01/2022 Clothing Answer Date Recorded Have you been unable to get clothing when it was really needed? No 12/01/2022 Is your family able to get c lothes or diapers when needed? (Household - for ages 0-17 years) Not on file 12/01/2022 Personal Safety Answer Date Recorded Do you feel unsafe or have concerns for your saf ety? No 12/01/2022 Do you have concerns for you r family's safety? (Household - for ages 0-17 years) Not on file 12/01/2022 Utilities Answer Date Recorded Do you have trouble paying y our heating, water, or electric bill? No 12/01/2022 Is your family able to pay t he heat, water, or electric bill? (Household - for ages 0-17 years) Not on file 12/01/2022 Does your family have access to good internet? (Household - for ages 0-17 years) Not on file 12/01/2022 Employment Status Answer Date Recorded Are you unemployed or without regular income? No 12/01/2022 Does the household have a re gular source of income? (Household - for ages 0-17 years) Not on file 12/01/2022 Social Connections Answer Date Recorded How often do you feel lonely or isolated from th ose around you? Never 12/01/2022 Financial Resource Strain Answer Date R ecorded Do you have any trouble payi ng for your medications, or do you think you might in the future? No 12/01/2022 Does your family have troubl e paying for medicine? (Household - for ages 0-17 years) Not on file 12/01/2022 Transportation Needs Answer Date Record ed READ ONLY Do you have troubl e getting a ride to medical visits or work? Never True 12/01/2022 Does your family have a hard time getting a ride to doctors visits? (Household - for ages 0-17 years) Not on file 12/01/2022 Has lack of transportation k ept you from medical appointments, meetings, work, or from getting things needed for daily living? Check all that apply. (Adult - for ages 18 years and over) Not on file 12/01/2022 Do you (or your family) have trouble finding or paying for a ride (transportation)? (Household - for ages 0-17 years) Not on file 12/01/2022 Housing Stability Answer Date Recorded Do you currently live in a s helter or have no steady place to sleep at night? No 12/01/2022 READ ONLY Do you think you a re at risk of becoming homeless? No 12/01/2022 Does your family worry about paying for your home or becoming homeless? (Household - for ages 0-17 years) Not on file 1 Are you homeless or worried that you might be in the future? (Adult - for ages 18 years and over) Not on file Are you (or your family) jazmine eless or worried that you might be in the future? (Household - for ages 0-17 years) Not on file Food Insecurity Answer Date Recorded Do you need food for this week? No 12/01/2022 Are you able to get enough f ood for your family? (Household - for ages 0-17 years) Not on file 12/01/2022 Does your family need food t his week? (Household - for ages 0-17 years) Not on file 12/01/2022 Do you always have enough fo od for your family? (Household - for ages 0-17 years) Not on file 12/01/2022 Sex and Gender Information Value Date Recorded Sex Assigned at Female 07/01/2022 10:03 AM EDT Gender Identity Female 07/01/2022 10:03 AM EDT Sexual Orientation Straight 07/01/2022 10 :03 AM EDT Job Start Date Occupation Industry Not on file Not on file Not on file documented as of this encounter Miscellaneous Notes * Telephone Encounter - Tracy Guadarrama MD - 08/18/2023 8:04 AM EDT signed * Telephone Encounter - Yesi Hardy LPN - 08/18/2023 7:48 AM EDT Pended ordered requested by [facility] with [facility] documented in this encounter Plan of Treatment Upcoming Encounters Date Type Department Care Team (Late st Contact Info) Description 12/08/2023 10:40 AM EDT Office Visit [facility] [address] [place] [address] Tracy Guadarrama MD [address] [place] [address] Scheduled Orders Name Type Priority Associated Diagnoses Orde r Schedule MAMMOGRAM SCREENING KOJO BILATERAL Medical Imaging Routine Screening mammogram for breast cancer Expected: 08/18/2023 (Approximate), Expires: 09/16/2024 Health Maintenance Due Date Last Done Comments DTaP,Tdap,and Td Vaccines (2 - Td or Tdap) 10/01/2021 10/02/2011, 03/24/1997 COVID-19 Vaccine ( season) 2022 06/17/2021, 12/29/2020, 05/09/2020, Additional history exists Depression Screening 12/03/2022 12/03/2021 CKD PHOS USE SMARTSET 62966 08/14/202307/25, 07/16/2021, 07/11/2020, Additional history exists Albumin/Creatinine Ratio 11/27/2023 023, 11/29/2021, 11/05/2017, Additional history exists HbA1c 11/27/2023 11/26/2022, 08/2021, 07/16/2021, Additional history exists CKD HGB USE SMARTSET 83294 01/01/202412/31, 12/31/2022, 08/13/2022, Additional history exists GFR [...] as of this encounter Visit Diagnoses Diagnosis Screening mammogram for breast cancer- Primary documented in this encounter Care Teams Oil House Attendant Relationship Specialty Start Date End Date Tracy Guadarrama MD [address] [place] [facility] [place] [address] PCP - General Family Medicine 12/03/21 documented as of this encounter
[2023-08-19 08:39] LABS: Albumin Globulin Ratio 1.4 (0.9-2); Albumin Level 3.3 gm/dl (3.4-5.0); BUN Creatinine Ratio 18.7 (10-20); Bilirubin,Total 0.6 mg/dl (0.2-1.0); C Reactive Protein 7.57 mg/dl (0-0.5); Calcium 8.3 mg/dl (8.6-10.3); Creatinine Clr Calc Pharmacy 39.7 ml/min; Est GFR (African American) 68.1 ml/min; Est GFR (Non-African American) 58.8 ml/min; Globulin 2.3 gm/dl (2.5-4.0); Potassium 3.6 mmol/L (3.5-5.1); Total Protein 5.6 gm/dl (6.0-8.3)
[2023-08-19] MEDS ORDERED: gemfibroziL 600 MG TAB PO SCH (09:00)
[2023-08-19] MEDS ORDERED: NON-FORMULARY MEDICATION (Potassium Gluconate 595 mg (99 mg) Tablet) PO SCH (09:00)
[2023-08-19 09:18] LABS: Hematocrit (blood only) 30.7 % (37.0-47.0); Hemoglobin 10.1 g/dl (12.0-16.0); Mean Corpuscular Hemoglobin 29.7 pg (25.0-34.0); Mean Corpuscular Hgb Conc 32.9 g/dL (32.0-36.0); Mean Corpuscular Volume 90.3 fL (80.0-100.0); Mean Platelet Volume 12.2 fL (9.4-12.4); Platelet Count 108 K/uL (130-400); RDW Coefficient of Variation 12.7 % (11.5-14.5)
[2023-08-19] MEDS: CHOLECALCIFEROL 25 MCG (1000 UNITS) TAB PO SCH (10:36)
[2023-08-19] MEDS: CYANOCOBALAMIN (B-12) 500 MCG TABLET PO SCH (10:36)
[2023-08-19] MEDS: PANTOprazole 40 MG TAB PO SCH (10:37)
[2023-08-19] MEDS: LOSARTAN POTASSIUM 50 MG TAB PO SCH (10:37)
[2023-08-19] MEDS: DOCUSATE SODIUM 100 MG CAP PO SCH (10:37)
[2023-08-19] MEDS: CEROVITE ADV FORMULA TAB PO SCH (10:38)
--- NOTE | 2023-08-19 11:28 | Gastroenterology Progress Note ---
Date of Service August 19, 2023 Assessment & Plan (1) Acute pancreatitis: Plan: 83 year old female s/p CCY about 15 years ago who reports upper abd pain, nausea/vomiting about 3 weeks ago, self-limiting, w/ return of symptoms now, more severe pain w/ persistent nausea/vomiting prompting ED evaluation. CT and MR concerning for acute pancreatitis. There is report of biliary prominence with CBD 11mm but no report of filling defect, pancreatic ductal dilation at 5mm and report of a pancreas divisum Treat the pancreatitis conservatively Start with clear liquids and advance to low fat as tolerated LR 150 mL/hr Watch for adequate hydration, 2 pt drop in HGB Trend glucose, WOOL PRESSER Antiemetics PRN Analgesia PRN Encouraged early ambulation, OOB to chair etc Start Miralax 1 capful daily Recommend OP EUS in about 4 weeks time, please help arrange with the health sy stem of her choice Will sign off. Thank you for allowing us to participate in the care of this patient. Please call with any acute changes, questions or concerns. Please see addendum below with additional recommendation from my supervising physician. I spent a total of 55 minutes on the date of service in review of patient's record, and previously obtained information in person and appropriate medical visit, discussion and education of plan, with patient and/or caregiver, placing orders for tests/referral/procedures as medically necessary and documentation of pertinent clinical information in patient's medical records for their visit today. Admission and Anticipated Discharge Date Admission Date: August 18, 2023 Supervising Physician Co-Signing Physician Notes I examined the patient and reviewed patient's chart , laboratory data and georges ging studies. I agree with with assessment and plan of care as suggested by advanced practice provider. The patient is feeling well, denies abdominal pain. Earlier temperature of 38. Repeated 37. Follow-up as an outpatient few weeks. Follow-up with endoscopic ultrasound. Subjective Feeling well Less pain No nausea, vomiting Yet to eat. Tbili 0.6 AST 12 ALT 8 ALKP 56 Review of Systems Review of Systems: All other findings negative except as noted in HPI. Physical Exam Constitutional: WD/WN, vitals as above Respiratory: normal respiratory effort, lungs clear to auscultation Cardiovascular: Rate/Rhythm: regular rate and regular rhythm Gastrointestinal (Abdomen): normal bowel sounds, soft, nontender, no hepatosplenomegaly Skin: no rashes, warm and dry Results & Data Results & Data Vital Signs (Past 12 Hours) Vital Signs Temp Pulse Pulse Resp BP Pulse Ox O2 Del Method 08/19/23 10:55 37.0 C 80 16 127/76 95 Room Air 08/19/23 08:00 Room Air 08/19/23 07:47 77 08/19/23 07:22 37.1 C 80 17 122/66 92 Room Air 08/19/23 03:00 36.9 C 78 16 156/71 H 95 Room Air 08/19/23 00:37 76 Laboratory Results 08/19/23 08/18/23 08/18/23 Range/Units 07:36 16:01 11:57 WBC 8.80 (4.8-10.8) K/ul RBC 3.40 L (4.20-5.40) M/uL Hgb 10.1 L D (12.0-16.0) g/dl Hct 30.7 L (37.0-47.0) % MCV 90.3 (80.0-100.0) fL MCH 29.7 (25.0-34.0) pg MCHC 32.9 (32.0-36.0) g/dL RDW Std Deviation 42.0 (36.4-46.3) fL RDW Coeff of Josh 12.7 (11.5-14.5) % Plt Count 108 L (130-400) K/uL MPV 12.2 (9.4-12.4) fL Sodium 137 (136-145) mmol/L Potassium 3.6 (3.5-5.1) mmol/L Chloride 107 (98-107) mmol/L Carbon Dioxide 23 (21-32) mmol/L Anion Gap 7 (3-11) BUN 17 (6-23) mg/dl Creatinine 0.91 D (0.6-1.2) mg/dl Est Cr Clr Drug Dosing 39.7 ml/min Est GFR ( Amer) 68.1 ml/min Est GFR (Non-Af Amer) 58.8 ml/min BUN/Creatinine Ratio 18.7 (10-20) Glucose 81 (70-99(Fasting)) mg/dl Calcium 8.3 L (8.6-10.3) mg/dl Total Bilirubin 0.6 (0.2-1.0) mg/dl AST 12 L (13-39) U/L ALT 8 (7-52) U/L Alkaline Phosphatase 56 (34-104) U/L Troponin I High Sens 27.1 H 31.3 H (0-14) pg/ml C-Reactive Protein 7.57 H (0-0.5) mg/dl Total Protein 5.6 L D (6.0-8.3) gm/dl Albumin 3.3 L (3.4-5.0) gm/dl Globulin 2.3 L (2.5-4.0) gm/dl Albumin/Globulin Ratio 1.4 (0.9-2) Triglycerides 153 H (0-150) mg/dl Cholesterol 92 (0-200) mg/dl LDL Cholesterol, Calc 38 mg/dl VLDL Cholesterol, Calc 31 H (0-30) mg/dl HDL Cholesterol 23 mg/dl Cholesterol/HDL Ratio 4.0 (0-5) Lipase 254 H (11-82) U/L PG Care Time/CCT Total # of Minutes Spent Total Time Spent with Patient: Total time spent is greater than 50% in coordination of care (as documented) at patient's floor/unit and/or counseling patient: Coding Level of Care Code 10569 SUB INP/OBS CARE 3/50MIN Diagnoses Acute pancreatitis K85.90 Acute pancreatitis complication: unspecified Pancreatitis type: unspecified pancreatitis type (1) Acute pancreatitis Acute pancreatitis complication: unspecified Pancreatitis type: unspecified pancreatitis type Qualified Code(s): K85.90 - Acute pancreatitis without necrosis or infection, unspecified
--- NOTE | 2023-08-19 13:45 | Hospitalist Progress Note ---
Date of Service August 19, 2023 Assessment & Plan (1) Acute pancreatitis: Plan per previous hospitalist notes with addendum: Amie Cazares is an 83y/o F with PMHx of dyslipidemia, HTN, prediabetes, allergic rhinitis, GERD, CKD stage III and other problems listed below who presented to the ED for evaluation of N/V, abdominal pain x 2 days and was found to have acute pancreatitis. Acute Pancreatitis Admitting Imaging: * CTAP --> "Findings consistent with acute pancreatitis. Peripancreatic fluid extending into the mesentery. No peripancreatic fluid collections. No evidence for gland necrosis. Pancreas divisum. Mild dilatation of the pancreatic duct. Mild biliary ductal dilatation status post cholecystectomy and mild wall thickening of common bile duct. A few subcentimeter peripheral enhancing foci overlying the right hepatic lobe. These are nonspecific but may reflect small dropped gallstones. Small amount of fluid within the pelvis. Extensive sigmoid diverticulosis. No evidence for acute diverticulitis." Admitting Labs: * Lipase elevated @ 1538 * LFTs w/in normal range * Leukocytosis, WBC 12.33 * UA negative * Trop 34.2 -> 31.3 ED provider spoke with GI. Biliary duct dilatation more than likely from prior cholecystectomy, less concern for CBD stone at this time. Recommend to correlate with MRCP. Patient received 1.5L NSS, 4mg IV Zofran in the ED. -PRN IV Zofran Q4H -Continue IVF w/ LR's -NPO, bowel rest -Pain control PRN -MRCP pending -Routine GI consult -Pt denies any chest pain -Elevated trop, WBC more than likely reactive 2/2 pain -Repeat trop @ 4PM, trend result -Repeat CBC, CMP in AM -Lipid panel, CRP in AM -Repeat lipase in AM 08/18 MRCP: No cholelithiasis Lipase trended down from 1500, currently 250 Clinically improving overall Continue IV LR, start clear liquids GI consulted Recommend outpatient endoscopic ultrasound in 4 weeks HTN: Continue losartan w/ hold parameters CKD Stage III: Avoid nephrotoxic medications when able, Cr stable @ 1.26 on admission Hyperlipidemia: hold gemfibrozil- can cause pancreatitis GERD: Continue PPI therapy Hx of Glaucoma Hx of B/L Cataract Surgery Can continue [employer] eye drops DVT Prophylaxis: SQ Heparin Code Status: FULL CODE PCP: Tracy Guadarrama MD Dispo: Anticipate to return home when medically stable, hopefully by tomorrow Admission and Anticipated Discharge Date Admission Date: August 18, 2023 Subjective Follow-up for acute pancreatitis, etc. Seen sitting up in bed, comfortable, not in distress, in good spirits States she feels much better compared to yesterday Only has mild right flank pain, improving No nausea or vomiting, fevers or chills, shortness of breath, chest pain No other new symptoms Inquiring if she can be discharged today Explained she still needs to be observed in the hospital at least until tomorrow and go from there Review of Systems Review of Systems: all noted and negative except for above Physical Exam Physical Exam: General- oriented x 3, not in distress, speaks in sentences with no effort or accessory muscle use Eyes- anicteric Neck- no JVD Lungs- clear breath sounds bilaterally, no rales/wheezes Heart- normal rate, regular rhythm; no murmurs Abdomen- normal bowel sounds, nondistended, soft, nontender Extremities- no pretibial edema, no calf tenderness Neuro- alert, oriented x 3; no gross focal neurologic deficits Skin- warm & dry Results & Data Results & Data Vital Signs (Past 12 Hours) Vital Signs Temp Pulse Pulse Resp BP Pulse Ox O2 Del Method 08/19/23 10:55 37.0 C 80 16 127/76 95 Room Air 08/19/23 08:00 Room Air 08/19/23 07:47 77 08/19/23 07:22 37.1 C 80 17 122/66 92 Room Air 08/19/23 03:00 36.9 C 78 16 156/71 H 95 Room Air all noted and reviewed including below (1) Acute pancreatitis Pancreatitis type: unspecified pancreatitis type Acute pancreatitis complication: unspecified Qualified Code(s): K85.90 - Acute pancreatitis without necrosis or infection, unspecified
[2023-08-19] MEDS: ACETAMINOPHEN 325 MG TAB PO PRN (15:44)
--- NOTE | 2023-08-19 17:49 | XRay Report ---
XR chest 1V portable CLINICAL HISTORY: r/o pneumonia TECHNIQUE: Single frontal radiograph of the chest was obtained. Comparison: None available at the time of this dictation. FINDINGS: No lines and tubes are seen. Cardiomegaly is noted. The lungs are clear. No evidence of pleural effus ion or pneumothorax. IMPRESSION: No acute abnormalities and in particular no radiographic evidence of pneumonia. ACT 112: Negative or not required by law. Electronically signed by: Iftikhar Victoria M.D. 08/19/2023 5:48 PM
[2023-08-19] MEDS: MAGNESIUM HYDROXIDE SUSP 30 ML UDC PO PRN (20:55)
[2023-08-19] MEDS: MELATONIN 3 MG TAB PO PRN (20:57)
[2023-08-20 08:26] LABS: Hematocrit (blood only) 29.4 % (37.0-47.0); Hemoglobin 9.7 g/dl (12.0-16.0); Mean Corpuscular Hemoglobin 29.6 pg (25.0-34.0); Mean Corpuscular Volume 89.6 fL (80.0-100.0); Mean Platelet Volume 12.3 fL (9.4-12.4); Platelet Count 97 K/uL (130-400); RDW Coefficient of Variation 12.6 % (11.5-14.5); RDW Standard Deviation 41.5 fL (36.4-46.3); Red Blood Count 3.28 M/uL (4.20-5.40); White Blood Count 5.95 K/ul (4.8-10.8)
[2023-08-20 08:27] LABS: Albumin Level 3.1 gm/dl (3.4-5.0); Bilirubin Direct 0.1 mg/dl (0-0.2); Bilirubin,Total 0.4 mg/dl (0.2-1.0); Calcium 8.4 mg/dl (8.6-10.3); Est GFR (African American) 60.8 ml/min; Est GFR (Non-African American) 52.4 ml/min; Magnesium 1.7 mg/dl (1.7-2.4); Potassium 3.8 mmol/L (3.5-5.1); Total Protein 5.5 gm/dl (6.0-8.3)
[2023-08-20 08:51] LABS: Basophils # (auto) 0.03 K/uL (0.00-0.20); Basophils % (auto) 0.5 %; Eosinophils # (auto) 0.42 K/uL (0.00-0.50); Eosinophils % (auto) 7.1 %; Immature Granulocytes # (auto) 0.01 K/uL (0.01-0.20); Immature Granulocytes % (auto) 0.2 %; Lymphocytes # (auto) 0.84 K/uL (1.20-3.40); Lymphocytes % (auto) 14.1 %; Monocytes # (auto) 0.63 K/uL (0.11-0.59); Monocytes % (auto) 10.6 %; Neutrophils # (auto) 4.02 K/uL (1.40-6.50); Neutrophils % (auto) 67.5 %
[2023-08-20] MEDS: POLYETHYLENE (MIRALAX) 17 GM PACK PO PRN (09:05)
--- NOTE | 2023-08-20 18:52 | Discharge Summary ---
Discharge Summary Date of Service August 20, 2023 Principal Dx & Hospital Course #1 = Principal Diagnosis (1) Acute pancreatitis: Plan per previous hospitalist notes with addendum: Amie Cazares is an 83y/o F with PMHx of dyslipidemia, HTN, prediabetes, allergic rhinitis, GERD, CKD stage III and other problems listed below who presented to the ED for evaluation of N/V, abdominal pain x 2 days and was found to have acute pancreatitis. Acute Pancreatitis Admitting Imaging: * CTAP --> "Findings consistent with acute pancreatitis. Peripancreatic fluid extending into the mesentery. No peripancreatic fluid collections. No evidence for gland necrosis. Pancreas divisum. Mild dilatation of the pancreatic duct. Mild biliary ductal dilatation status post cholecystectomy and mild wall thickening of common bile duct. A few subcentimeter peripheral enhancing foci overlying the right hepatic lobe. These are nonspecific but may reflect small dropped gallstones. Small amount of fluid within the pelvis. Extensive sigmoid diverticulosis. No evidence for acute diverticulitis." Admitting Labs: * Lipase elevated @ 1538 * LFTs w/in normal range * Leukocytosis, WBC 12.33 * UA negative * Trop 34.2 -> 31.3 ED provider spoke with GI. Biliary duct dilatation more than likely from prior cholecystectomy, less concern for CBD stone at this time. Recommend to correlate with MRCP. Patient received 1.5L NSS, 4mg IV Zofran in the ED. -PRN IV Zofran Q4H -Continue IVF w/ LR's -NPO, bowel rest -Pain control PRN -MRCP pending -Routine GI consult -Pt denies any chest pain -Elevated trop, WBC more than likely reactive 2/2 pain -Repeat trop @ 4PM, trend result -Repeat CBC, CMP in AM -Lipid panel, CRP in AM -Repeat lipase in AM 08/18 MRCP: No cholelithiasis Lipase trended down from 1500, currently 250 Clinically improving overall Continue IV LR, start clear liquids GI consulted Recommend outpatient endoscopic ultrasound in 4 weeks HTN: Continue losartan w/ hold parameters CKD Stage III: Avoid nephrotoxic medications when able, Cr stable @ 1.26 on admission Hyperlipidemia: hold gemfibrozil- can cause pancreatitis GERD: Continue PPI therapy Hx of Glaucoma Hx of B/L Cataract Surgery Can continue [employer] eye drops DVT Prophylaxis: SQ Heparin Code Status: FULL CODE PCP: Tracy Guadarrama MD Dispo: Anticipate to return home when medically stable, hopefully by tomorrow Admission HPI Per Admitting Provider Amie Cazares is an 83y/o F with PMHx of hyperlipidemia, HTN, prediabetes, allergic rhinitis, GERD, CKD stage III, osteoarthritis, hx of cholecystectomy, hx of appendectomy and other problems listed below who presented to the ED for evaluation of N/V, abdominal pain x 2 days. History obtained from patient, (De) at bedside and associated chart review. Patient seen at bedside with Dr. Armstrong. Patient reports that she has been experiencing intermittent nausea and vomiting, abdominal pain for the past 2 days. States her last full meal was Thursday night; has not been able to tolerate food intake since then. States she has been trying to hydrate appropriately. She did take her prescription medications this morning. She had a bowel movement yesterday. States her last "regular" bowel movement was Thursday night. She did pass gas this morning. No blood in her bowels or vomit, denies any fevers. States she did become sweaty during her episodes of vomiting. The abdominal pain is more localized to her epigastric region, but does radiate around her right upper abdominal region to the middle of her back. Mentions she is very tender to palpation in that region. She cannot really tolerate even touching her upper abdomen. She has not taken any pain medications at home. Reports 10/10 pain at its worst. Patient mentions she had an episode like this approximately 3 weeks ago. That episode lasted about 4 days and resolved without any medical interv ention. At that time, she felt she was having an episode of food poisoning. She decided to come to the ED today due to no improvement in her pain. She has not had an episode of vomiting since yesterday afternoon. Patient endorses having 1 glass of wine daily, but has not consumed any alcoholic beverages in the past 3 weeks. Updated Medication List Medication Instructions Recorded Confirmed Type cholecalciferol (vitamin D3) 25 25 mcg PO DAILY 07/21/19 08/18/23 History mcg (1,000 unit) tablet (Vitamin D3) cyanocobalamin (vitamin B-12) 1,000 mcg PO DAILY 07/21/19 08/18/23 History 1,000 mcg tablet (Vitamin B-12) cyclosporine 0.05 % eye drops in a 1 drp ophthalmic (eye) Q12H 07/21/19 08/18/23 History dropperette (Restasis) diphenhydramine 25 1 tab PO HS PRN Pain 07/21/19 08/18/23 History mg-acetaminophen 500 mg tablet (Tylenol PM Extra Strength) docusate sodium 100 mg capsule 200 mg PO QAM 07/21/19 08/18/23 History (Stool Softener) gemfibrozil 600 mg tablet 600 mg PO QAM 07/21/19 08/18/23 History losartan 100 1 tab PO QAM 07/21/19 08/18/23 History mg-hydrochlorothiazide 25 mg tablet [id number] 8 mg-folic 400 1 tab PO DAILY 07/21/19 08/18/23 History mcg-K 50 mcg-lutein 300 mcg tablet (Centrum Silver Women) pantoprazole 20 mg tablet,delayed 20 mg PO QAM 07/21/19 08/18/23 History release potassium gluconate 595 mg (99 mg) 595 mg PO DAILY 07/21/19 08/18/23 History tablet travoprost 0.004 % eye drops 1 drp ophthalmic (eye) PM 07/21/19 08/18/23 History (Travatan Z) tramadol 50 mg tablet 50 mg PO Q6H PRN pain #30 tabs 07/29/19 08/18/23 Rx losartan 50 mg tablet 50 mg PO DAILY 08/18/23 08/18/23 History naproxen sodium 220 mg tablet 440 mg PO Q12H PRN Pain 08/18/23 08/18/23 History (Aleve) Hospital Stay Data Consultations 08/18/23 11:56 Consult Gastroenterology Routine ED Decision to Admit Stat 08/18/23 13:36 Consult Gastroenterology Routine Diagnostic Imagining Performed 08/18/23 09:14 CT abd pelvis IV con only Stat 08/18/23 12:02 MR MRCP Urgent Pending Results Patient Have Any Pending Studies at Discharge: No Discharge Instructions Given to Patient (Per Discharging Provider) YOU CAN RESUME YOUR USUAL MEDICATION REGIMEN. PLEASE CALL YOUR PRIMARY CARE PHYSICIAN OR RETURN TO THE ER IF WITH WORSENING OF SYMPTOMS, INCLUDING ABDOMINAL PAIN, NAUSEA/VOMITING, FEVER/CHILLS, DIARRHEA, ETC FOLLOW UP WITH PRIMARY CARE PHYSICIAN OUTLINED ABOVE.
== END 2023-08-20 16:33 | disposition home or self-care (01) | DRG 440 ==
LOC: ED 08:36 → EDINP 12:05 → SUATTDRO 12:05 → 2W 21:40